=== PATIENT | female | born 1930 | race Caucasian/White ===

== ENCOUNTER 2016-05-18 14:44 | Emergency (ER) | payer MEDICARE ==
[2016-05-18 15:07] VITALS: BP 154/65
--- NOTE | 2016-05-18 15:26 | ED Physician Documentation ---
Female Urogenital Problems - HISTORIAN Historian: patient - HPI Stated Complaint: UTI symptoms Chief Complaint: Female Urogenital Problems Onset: other (3 week) Severity: mild Further Comments: yes (3 week history some urinary burning, ungency, nocturia. No hematuria, no increase back pain. Has had UTI in the past) - Vaginal Bleeding Sexual History: inactive - Associated Symptoms Urinary Symptoms: frequent urination, discomfort w/ urination, burning w/ urination. denies: blood in urine Discharge: denies: vaginal discharge - ROS CONST: none - PAST HX Past History: none Other History: none Allergies/Adverse Reactions: Allergies Allergy/AdvReac Type Severity Reaction Status Date / Time No Known Allergies Allergy Verified 05/18/16 15:06 Home Medications: Ambulatory Orders Medication Instructions Recorded Ciprofloxacin HCl [Cipro] 250 mg PO BID #14 tablet 05/18/16 Ferrous Sulfate [Feosol] 325 mg PO BID 05/18/16 - SOCIAL HX Smoking History: non-smoker Alcohol Use: none Drug Use: none - FAMILY HX Family History: none - VITAL SIGNS Vital Signs: Vital Signs Temp Pulse Resp BP Pulse Ox 97.9 F 96 H 18 154/65 94 05/18/16 14:50 05/18/16 14:50 05/18/16 14:50 05/18/16 14:50 05/18/16 14:50 - REVIEWED ASSESSMENTS Nursing Assessment Reviewed: Yes Vitals Reviewed: Yes Female Urogenital Problems - EXAM General Appearance: no acute distress, alert Neck: nml inspection Respiratory: no resp. distress, breath sounds nml. No: wheezes, rales, rhonchi CVS: reg rate & rhythm, heart sounds normal, equal pulses, no murmur, no gallop Abdomen: no organomegaly, no distention, nml bowel sounds, tenderness ( suprapubic area) Back: CVA tenderness (mild bilateral) Skin: color nml, no rash, warm,dry Extremities: non-tender Neuro: oriented X3, CN's nml as tested, motor nml, sensation nml, mood/affect nml Discharge Clincal Impression: UTI (urinary tract infection) Prescriptions: Ciprofloxacin HCl [Cipro] 250 mg PO BID #14 tablet Referrals: Jocelyne Thomas MD [Primary Care Provider] - 2 Days Additional Instructions: Drink a lot of fluids, Take Cipro until gone. If you develop fever, chill, abdominal pain or other problems to follow-up with your primary care provider or return to the ED. Home Medications: Ambulatory Orders Ciprofloxacin HCl [Cipro] 250 mg PO BID #14 tablet 05/18/16 Ferrous Sulfate [Feosol] 325 mg PO BID 05/18/16 Condition: Stable Disposition: HOME, SELF-CARE Decision to Admit: NO Date of Decison to Admit: 05/18/16 Decision Time: 15:48
[2016-05-18 16:16] LABS: APPEARANCE,URINE Cloudy (CLEAR); COLOR,URINE Yellow (YELLOW); OCCULT BLOOD,URINE 2+ (NEGATIVE); PH URINE 5.5 (5.0 - 8.0); UROBILINOGEN URINE 0.2 Eu (0.2-1.0)
== END 2016-05-18 16:16 | disposition home or self-care (01) ==
LOC: ED 14:44
DX: N39.0 Urinary tract infection, site not specified (principal)
CPT/HCPCS: 81002; 87088; 87186; 99283

== ENCOUNTER 2016-06-22 15:59 | Emergency (ER) | payer MEDICARE ==
--- NOTE | 2016-06-22 16:37 | ED Physician Documentation ---
Fall - HISTORIAN Historian: patient - HPI Stated Complaint: fall Chief Complaint: Lower Extremity Problem Onset: just prior to arrival Where: other ([employer]) Context: slipped, lost balance r: moderate Associated Symptoms:: no loss of consciousness Location of Pain/Injury: head (mild), neck (lowe mild) Injury to Right Extremity: none Injury to Left Extremity: none Further Comments: yes (Patient slipped and fell backwards landing on her left side. Compalins of left hip and knee pain. No LOC No numbness or weakness to the leg) - ROS CONST: no problems - PAST HX Past History: cardiac disease, COPD, other (asthma, HTN) Allergies/Adverse Reactions: Allergies Allergy/AdvReac Type Severity Reaction Status Date / Time No Known Allergies Allergy Verified 06/22/16 16:13 Home Medications: Ambulatory Orders Medication Instructions Recorded Hydroxyzine Pamoate [Hydroxyzine 25 mg PO DAILY 06/22/16 Pamoate] - SOCIAL HX Smoking History: non-smoker Alcohol Use: none Drug Use: none - FAMILY HX Family History: no significant history - VITAL SIGNS Vital Signs: Vital Signs Temp Pulse Resp BP Pulse Ox 98.1 F 100 H 20 217/94 95 06/22/16 16:07 06/22/16 16:07 06/22/16 16:07 06/22/16 16:07 06/22/16 16:07 - REVIEWED ASSESSMENTS Nursing Assessment Reviewed: Yes Vitals Reviewed: Yes ED Results Lab/Radiology - Radiology Radiology Impressions: CT scan Head, age related changes CT scan c spine, degenerative changes, no acute fracture Hip: intertrochanteric fracture Kne: arthritic changes Fall Physical Exam - Physical Exam General Appearance: no acute distress, alert (0X3) Head: non-tender (mild abrasion tot he post occiput) Neck: painless ROM, trachea midline. No: non-tender (tendeer to plapation over the laterale right c5,6 area, no bony abnl noted) Resp/CVS: chest non-tender, no ecchymosis, breath sounds nml, no resp. distress , heart sounds nml. No: rib tenderness, rib palpable fracture, crepitus, subcutaneous emphysema Abdomen: soft, no organomegaly Neuro: oriented x3, CN's nml as tested, sensation nml, motor nml, mood/affect nml, sfdc developer nml, reflexes nml Skin: color nml, no rash Extremities: pelvis stable. No: hips non-tender (left hip tender to palpation and movement over the tracanteric region) Joint: painful (over the hip and lateral knee) - Jeramy Coma Score Eyes Open: Spontaneous Speech: Oriented Motor: Obeys Commands Discharge Clincal Impression: Intertrochanteric fracture of left femur Referrals: Jocelyne Thomas MD [Primary Care Provider] - 2 Days Home Medications: Ambulatory Orders Hydroxyzine Pamoate [Hydroxyzine Pamoate] 25 mg PO DAILY 06/22/16 Disposition: 02 XFER S[facility]-TRM HOSP Decision to Admit: NO Date of Decison to Admit: 06/22/16 Decision Time: 18:30 Lower Extremity Problem - HPI Stated Complaint: fall - PAST HX Allergies/Adverse Reactions: Allergies Allergy/AdvReac Type Severity Reaction Status Date / Time No Known Allergies Allergy Verified 06/22/16 16:13 Home Medications: Ambulatory Orders Medication Instructions Recorded Hydroxyzine Pamoate [Hydroxyzine 25 mg PO DAILY 06/22/16 Pamoate] - VITAL SIGNS Vital Signs: Vital Signs Temp Pulse Resp BP Pulse Ox 98.1 F 100 H 20 217/94 95 06/22/16 16:07 06/22/16 16:07 06/22/16 16:07 06/22/16 16:07 06/22/16 16:07
[2016-06-22] MEDS ORDERED: KETOROLAC TROMETHAMINE 30 MG/1ML VIAL IVP ONE (17:14)
--- NOTE | 2016-06-22 18:21 | Diagnostic Imaging Report ---
[address] [facility] [address] Report Submission Date: Jun 22, 2016 6:09:00 PM AIRPLANE RIGGER Patient Study Name: RAMIREZ HINSON Date: Jun 22, 2016 5:01:14 PM AIRPLANE RIGGER Modality Type: CR Gender: F Description: PELVIS : 28 Institution: Physician: VICKY MOSES 2 views of the hip History: Fall Delay downloading studies Findings: No comparison studies There is a minimally displaced intertrochanteric fracture of the left femur Vascular calcification is present Impression: Minimally displaced intertrochanteric fracture of the left femur Findings were discussed by Dr. Garrett with VIVI To on 06/22/16 at approx. 5:52 pm AIRPLANE RIGGER Electronically signed on Jun 22, 2016 6:09:00 PM AIRPLANE RIGGER by: Anitha NEWTON
--- NOTE | 2016-06-22 18:22 | Diagnostic Imaging Report ---
[facility] [address] [address] Report Submission Date: Jun 22, 2016 6:14:02 PM TAXICAB DRIVER Patient Study Name: RAMIREZ HINSON Date: Jun 22, 2016 5:07:38 PM TAXICAB DRIVER Modality Type: CR Gender: F Description: LOWER EXTREMITY : 29 Institution: [facility] Physician: VICKY MOSES 3 views of the left knee History: Fall Findings: No comparison studies Overlying bandage obscures osseous and soft tissue detail Degenerative changes are noted at the left knee No evidence of acute fracture of the left knee Bones are demineralized Chondrocalcinosis lateral knee joint space Impression: 1. Overlying bandage dressing obscures osseous and soft tissue detail, within this limitation, no obvious evidence of acute fracture or dislocation of the left knee 2. Chondrocalcinosis lateral joint space 3. Tricompartmental degenerative changes. A small suprapatellar effusion may be present Electronically signed on Jun 22, 2016 6:14:02 PM TAXICAB DRIVER by: Anitha NEWTON
--- NOTE | 2016-06-22 18:23 | Diagnostic Imaging Report ---
[facility] [address] [facility] [address] [place] [address]. [address] Report Submission Date: Jun 22, 2016 5:04:13 PM TRACK REPAIR SUPERVISOR Patient Study Name: RAMIREZ HINSON Date: Jun 22, 2016 4:47:44 PM TRACK REPAIR SUPERVISOR Modality Type: CT\SR Gender: F Description: CT BRAIN W/O CONTRAST : 29 Institution: [facility] Physician: VICKY MOSES CT head History: FALL WITH HEAD TRAUMA Multiple axial images of the brain are submitted with reconstructions Findings: No comparison studies There is no acute intracranial hemorrhage. No midline shift Intracranial vascular calcification is present Cerebral atrophy is seen Periventricular white matter hypodensities of small vessel ischemic disease are present No acute skull fracture. Mastoid air cells and paranasal air sinuses are well aerated Impression: 1. No acute intracranial hemorrhage. No midline shift 2. Cerebral atrophy and prominent ventricles 3. Periventricular small vessel ischemic disease Electronically signed on Jun 22, 2016 5:04:13 PM TRACK REPAIR SUPERVISOR by: Anitha NEWTON
--- NOTE | 2016-06-22 18:24 | Diagnostic Imaging Report ---
[facility] [place] [facility] [address] [facility] [address] [place], [place]. [address] Report Submission Date: Jun 22, 2016 6:22:09 PM RESEARCH & INSIGHTS EXECUTIVE Patient Study Name: RAMIREZ HINSON Date: Jun 22, 2016 4:49:43 PM RESEARCH & INSIGHTS EXECUTIVE Modality Type: CT\SR Gender: F Description: CT C-SPINE W/O CONTRAS : 29 Institution: [facility] [place] [facility] Physician: VICKY MOSES CT cervical spine History: Fall Multiple axial images of the cervical spine are submitted with reconstructions Delay downloading images Findings: No comparison studies No evidence of acute fracture of the cervical spine There is no prevertebral or hematoma Multilevel degenerative changes are noted throughout the cervical spine, these are worst at C5-6 with grade I retrolisthesis of C5 on C6, mild spinal canal narrowing at this level Generalized disc bulges are noted at C4-5, C6/C7 There is a spiculated nodular mass at the right lung apex which measures 1.2 x 1.3 cm with adjacent scarring and architectural distortion Impression: 1. No evidence of acute fracture of the cervical spine 2. Multilevel degenerative changes are worst at C5-6 with mild to moderate spinal canal narrowing at this level 3. Grade I retrolisthesis of C5 on C6. 4. No prevertebral hematoma. 5. Spiculated nodular mass at the right lung apex with adjacent scarring needs further evaluation, comparison with prior studies and/or CT chest is suggested Findings discussed by Dr. Garrett with VIVI To on 06/22/16 at approx. 5: 52 pm RESEARCH & INSIGHTS EXECUTIVE Electronically signed on Jun 22, 2016 6:22:09 PM RESEARCH & INSIGHTS EXECUTIVE by: Anitha NEWTON
[2016-06-22] MEDS ORDERED: fentaNYL CITRATE/PF 100 MCG/ 2ML AMP IVP ONE (18:49)
[2016-06-22] MEDS ORDERED: fentaNYL CITRATE/PF 100 MCG/ 2ML AMP ONE (18:49)
[2016-06-22 22:10] VITALS: BP 204/95
== END 2016-06-22 18:40 | disposition short-term general hospital (02) ==
LOC: ED 15:59
DX: S72.142A Displaced intertrochanteric fracture of left femur, initial encounter for closed fracture (principal); W01.0XXA Fall on same level from slipping, tripping and stumbling without subsequent striking against object, initial encounter; Y93.9 Activity, unspecified; Y99.9 Unspecified external cause status
CPT/HCPCS: 70450; 72125; 73502; 73562; J1885; J3010; 96374; 96375; 99283; 99284

== ENCOUNTER 2016-06-25 16:40 | Inpatient (IN) | payer MEDICARE ==
[2016-06-25 17:11] VITALS: BMI 20.2
[2016-06-25] MEDS ORDERED: POLYETHYLENE GLYCOL 3350 17 GM POWD.PACK PO PRN (17:19)
[2016-06-25] MEDS ORDERED: IPRATROPIUM/ALBUTEROL SULFATE 3 ML AMPUL.NEB NEB PRN (17:19)
[2016-06-25] MEDS ORDERED: ACETAMINOPHEN 325 MG TABLET PO PRN (17:19)
--- NOTE | 2016-06-25 18:23 | History and Physical Report ---
History of Present Illnes - History of Present Illness Reason for Visit: left hip fracture History of Present Illness: Thisis an 86 year old female admitted with a left hip fracture after having a fall at the grocery store on . She initially presented to the [facility] ER, and was noted to have a left intertrochanteric hip fracture. She was taken to the OR by Dr. Pradeep Buck who did a left hip pinning on June 23. Her recovery has been fairly unremarkable, and she presents to our facility for OT/PT so that she can return to her home on discharge. 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 denies: Pneumococcal Vaccine Influenza Vaccine: Current for this Influenza Season Pneumonia Vaccine: Yes (03/09/16) Resuscitation Status: Resusciation Status Resuscitation Status DNR after conversation with patient and her daughter Cassie [phone] 18:15 - Unable to Obtain History Unable to Obtain: No Review of Systems - Review of Systems Constitutional: negative: Fever Eyes: pain (left hip) ENT: negative: Ear Pain, Mouth Swelling Respiratory: Shortness of Breath (chronic). negative: Cough Cardiovascular: negative: Chest Pain Gastrointestinal: negative: Nausea, Deferred Genitourinary: negative: Dysuria Musculoskeletal: negative: Neck Pain Skin: negative: Rash Neurological: negative: Weakness, Change in Speech, Confusion - Medications/Allergies Allergies/Adverse Reactions: Allergies Allergy/AdvReac Type Severity Reaction Status Date / Time No Known Allergies Allergy Verified 06/22/16 16:13 Current Inpatient Medications: Current Inpatient Medications Acetaminophen (Tylenol) 650 mg PO Q4H PRN PRN Reason: PAIN OR TEMPERATURE > 101 Albuterol Sulfate (Proair Respiclick) 1 puff INH BID [place] Albuterol/Ipratropium (Duoneb) 3 ml NEB Q6 PRN PRN Reason: WHEEZE/SHORTNESS OF AIR Aspirin (Aspirin) 81 mg PO DAILY [facility] Cholecalciferol (Vitamin D-3) 2,000 unit PO DAILY [facility] Docusate Sodium (Colace) 100 mg PO BID [facility] Enoxaparin Sodium (Lovenox) 40 mg SQ QD [facility] Stop: 07/09/16 08:59 Ferrous Sulfate (Feosol) 325 mg PO [id number] [facility] Metoprolol Succinate (Toprol Xl) 25 mg PO DAILY [facility] Polyethylene Glycol (Miralax) 17 gm PO 1100 PRN PRN Reason: Constipation Psyllium Hydrophilic Mucilloid (Metamucil) 1 each PO 1100 [facility] Tiotropium [place] (Spiriva) 1 inh IH DAILY [facility] Exam - Exam Vital Signs: Vital Signs (72 hours) 06/22/16 06/25/16 22:08 16:59 Temperature 98.5 F Pulse Rate [ 81 Pulse ox] Respiratory 18 Rate Blood Pressure 204/95 Blood Pressure 154/65 [Left Arm] Blood Pressure 204/95 108/53 [Right Arm] O2 Sat by Pulse 92 Oximetry General: Alert, Oriented to Person, Oriented to Place, Oriented to Time, Cooperative, No acute distress HEENT: Atraumatic, PERRLA, EOMI, Mouth Mucous membr. moist/[place] Neck: Other (no bruits). No: Stridor, Rigidity Lungs: Prolonged Expiration, Decreased Air Movement Cardiovascular: Regular rate Murmur: Systolic Murmur (II/ (Likely mild )) Heart Murmur Grade: II Abdomen: Normal bowel sounds, Soft, No tenderness, No hepatospenomegaly, No masses Genitourinary: No: Right Inguinal Hernia, Left Inguinal Hernia Male Genitourinary: No: Other Female Genitourinary: No: Prolapse, Masses Integumentary: Normal, [place], Warm, Dry Extremities: No clubbing, No cyanosis, Other (Both incisions are approximated with trang and look very good.) Neurological: Normal speech, Strength Equal Bilat Psych/Mental Status: Mental status NL Assessment/Plan - Assessment/Plan (1) COPD (chronic obstructive pulmonary disease) Status: Acute Current Visit: Yes Qualifiers: COPD type: emphysema Emphysema type: panlobular Qualified Code(s): J43.1 - Panlobular emphysema (2) CAD (coronary artery disease) Status: Acute Current Visit: Yes Qualifiers: Coronary Disease-Associated Artery/Lesion type: [place] artery [place] vs. transplanted heart: [place] heart Associated angina: without angina Qualified Code(s): I25.10 - Atherosclerotic heart disease of [place] coronary artery without angina pectoris (3) Hypertension Status: Acute Current Visit: Yes Qualifiers: Hypertension type: essential hypertension Qualified Code(s): I10 - Essential (primary) hypertension Comment: Well controlled (4) Intertrochanteric fracture of left femur Status: Acute Current Visit: No Assessment: S/P Hip Pinning Plan: OT/PT consults (5) Osteoarthritis Status: Acute Current Visit: No Qualifiers: Osteoarthritis location: hip Osteoarthritis type: unspecified Laterality : right Qualified Code(s): M16.11 - Unilateral primary osteoarthritis, right hip Assessment: Chronic VTE Assessment - RISK FACTOR SCORE VTE RISK FACTOR SCORES: AGE OVER 60 YEARS, ANTICIPATED BED CONFINEMENT OR IMMOBILIZATION > 24 HOURS - RISK VTE MODERATE RISK: SCORE OF 2 (RISK PROXIMAL DVT 2-4%) PROPHYAXIS NEEDED (On lovenox 40 mg scqd.)
[2016-06-25] MEDS: FERROUS SULFATE 325 MG TABLET PO SCH (20:28)
[2016-06-25] MEDS: DOCUSATE SODIUM 100 MG CAPSULE PO SCH (20:28)
[2016-06-25] MEDS: HYDROcodone /APAP 5/325 1 EACH TABLET PO PRN (20:31)
[2016-06-25] MEDS: ALBUTEROL SULFATE 200 PUFF INHALER INH SCH (21:00)
[2016-06-26] MEDS: HYDROcodone /APAP 5/325 1 EACH TABLET PO PRN ×4 (02:55→20:29)
[2016-06-26] MEDS ORDERED: ENOXAPARIN SODIUM 40 MG/0.4 ML DISP.SYRIN SQ ONE (05:37)
[2016-06-26 06:33] LABS: BASOPHILS % 0.2 (0.0-1.5); EOSINOPHILS % 1.8 % (0.0-6.8); LYMPHOCYTES # 0.9 # k/uL (0.6-4.0); MEAN CORPUSCULAR HEMOGLOBIN 34.8 pg (28.0-34.0); MONOCYTES # 0.6 # k/uL (0.0-0.9); MONOCYTES % 7.9 % (0.0-11.0); NEUTROPHILS # 5.8 # k/uL (1.4-7.7)
[2016-06-26 06:54] LABS: eGFR (African) > 60; eGFR (Non-African) > 60
[2016-06-26] MEDS: DOCUSATE SODIUM 100 MG CAPSULE PO SCH ×2 (09:21→20:13)
[2016-06-26] MEDS: ENOXAPARIN SODIUM 40 MG/0.4 ML DISP.SYRIN SQ SCH (09:21)
[2016-06-26] MEDS: METOPROLOL SUCCINATE 50 MG TAB.ER.24H PO SCH (09:21)
[2016-06-26] MEDS: CHOLECALCIFEROL 1,000 UNIT TABLET PO SCH (09:21)
[2016-06-26] MEDS: TIOTROPIUM BROMIDE INHALER IH SCH (09:23)
[2016-06-26] MEDS: ALBUTEROL SULFATE 200 PUFF INHALER INH SCH ×2 (09:25→20:14)
[2016-06-26] MEDS: PSYLLIUM SEED 1 EACH PACKET PO SCH (11:47)
[2016-06-26] MEDS: FERROUS SULFATE 325 MG TABLET PO SCH ×2 (11:48→18:33)
[2016-06-26] MEDS ORDERED: PHARMACY KEY 1 EACH EACH MC ONE (19:49)
[2016-06-26] MEDS: rOPINIRole HCL 1 MG TABLET PO SCH (20:14)
[2016-06-27] MEDS ORDERED: ENOXAPARIN SODIUM 40 MG/0.4 ML DISP.SYRIN SQ ONE (05:50)
[2016-06-27] MEDS ORDERED: ONDANSETRON HCL 4 MG TAB.RAPDIS PO PRN (07:47)
[2016-06-27] MEDS: METOPROLOL SUCCINATE 50 MG TAB.ER.24H PO SCH (08:24)
[2016-06-27] MEDS: ENOXAPARIN SODIUM 40 MG/0.4 ML DISP.SYRIN SQ SCH (08:27)
[2016-06-27] MEDS: DOCUSATE SODIUM 100 MG CAPSULE PO SCH ×2 (08:27→20:03)
[2016-06-27] MEDS: ALBUTEROL SULFATE 200 PUFF INHALER INH SCH ×2 (08:28→20:04)
[2016-06-27] MEDS: TIOTROPIUM BROMIDE INHALER IH SCH (08:29)
[2016-06-27] MEDS: CHOLECALCIFEROL 1,000 UNIT TABLET PO SCH (08:30)
[2016-06-27] MEDS: HYDROcodone /APAP 5/325 1 EACH TABLET PO PRN ×3 (11:01→20:34)
[2016-06-27] MEDS: FERROUS SULFATE 325 MG TABLET PO SCH ×2 (11:51→18:39)
[2016-06-27] MEDS: PSYLLIUM SEED 1 EACH PACKET PO SCH (11:52)
[2016-06-27] MEDS: rOPINIRole HCL 1 MG TABLET PO SCH ×2 (11:55→20:03)
[2016-06-28] MEDS ORDERED: ENOXAPARIN SODIUM 40 MG/0.4 ML DISP.SYRIN SQ ONE (05:11)
[2016-06-28] MEDS: METOPROLOL SUCCINATE 50 MG TAB.ER.24H PO SCH (09:20)
[2016-06-28] MEDS: CHOLECALCIFEROL 1,000 UNIT TABLET PO SCH (09:20)
[2016-06-28] MEDS: TIOTROPIUM BROMIDE INHALER IH SCH (09:20)
[2016-06-28] MEDS: DOCUSATE SODIUM 100 MG CAPSULE PO SCH ×2 (09:20→20:17)
[2016-06-28] MEDS: ENOXAPARIN SODIUM 40 MG/0.4 ML DISP.SYRIN SQ SCH (09:21)
[2016-06-28] MEDS: ALBUTEROL SULFATE 200 PUFF INHALER INH SCH ×2 (09:21→20:18)
[2016-06-28] MEDS: HYDROcodone /APAP 5/325 1 EACH TABLET PO PRN ×2 (09:25→13:51)
[2016-06-28] MEDS: FERROUS SULFATE 325 MG TABLET PO SCH ×2 (11:29→19:11)
[2016-06-28] MEDS: PSYLLIUM SEED 1 EACH PACKET PO SCH (11:31)
[2016-06-28] MEDS: rOPINIRole HCL 1 MG TABLET PO SCH ×2 (11:32→20:17)
[2016-06-28] MEDS ORDERED: HYDROXYZINE HCL 25 MG TABLET PO PRN (14:25)
[2016-06-28] MEDS: HYDROcodone /APAP 10/325 1 EACH TABLET PO PRN ×2 (17:48→22:08)
[2016-06-29] MEDS: HYDROcodone /APAP 10/325 1 EACH TABLET PO PRN (05:22)
[2016-06-29 07:14] LABS: BASOPHILS % 0.3 (0.0-1.5); EOSINOPHILS % 2.2 % (0.0-6.8); LYMPHOCYTES # 0.9 # k/uL (0.6-4.0); MEAN CORPUSCULAR HEMOGLOBIN 34.1 pg (28.0-34.0); MONOCYTES # 0.4 # k/uL (0.0-0.9); MONOCYTES % 8.7 % (0.0-11.0); NEUTROPHILS # 3.4 # k/uL (1.4-7.7)
[2016-06-29] MEDS: METOPROLOL SUCCINATE 50 MG TAB.ER.24H PO SCH (08:08)
[2016-06-29] MEDS: TIOTROPIUM BROMIDE INHALER IH SCH (08:09)
[2016-06-29] MEDS: CHOLECALCIFEROL 1,000 UNIT TABLET PO SCH (08:09)
[2016-06-29] MEDS: DOCUSATE SODIUM 100 MG CAPSULE PO SCH ×2 (08:09→19:55)
[2016-06-29] MEDS: ALBUTEROL SULFATE 200 PUFF INHALER INH SCH ×2 (08:10→19:54)
[2016-06-29] MEDS: ENOXAPARIN SODIUM 40 MG/0.4 ML DISP.SYRIN SQ SCH (08:14)
--- NOTE | 2016-06-29 08:14 | Inpatient Progress Note ---
Subjective - Required Recertification Statement I anticipate X number of days because-include discharge plan: 14 - Review of Systems Subjective: Patient reports pain in her L hip. Better today than yesterday. Objective - Exam Vitals and I&O: Vital Signs Temp 98.3 F 06/28/16 21:00 Pulse 72 06/28/16 21:00 Resp 20 06/28/16 21:00 BP 159/59 06/28/16 21:00 Pulse Ox 93 06/28/16 21:00 Intake & Output 06/28/16 06/28/16 06/29/16 11:59 23:59 11:59 Intake Total 240 540 Balance 240 540 Weight 53.07 kg Intake: Oral 240 540 Other: Voiding Method Bedside Commode Bedside Commode # Voids 2 1 General: Alert, Oriented to Person, Oriented to Place, Oriented to Time, Cooperative, No acute distress Lungs: Clear to auscultation, Normal air movement, Speaks full Sentences - Results Results: Laboratory Results WBC 5.10 K/ul (4.00-12.00) 06/29/16 06:15 RBC 2.57 M/ul (3.90-5.20) L 06/29/16 06:15 Hgb 8.8 g/dL (12.0-16.0) L 06/29/16 06:15 Hct 26.3 % (34.5-46.5) L 06/29/16 06:15 MCV 102.4 fl (80.0-100.0) H 06/29/16 06:15 MCH 34.1 pg (28.0-34.0) H 06/29/16 06:15 MCHC 33.3 g/dL (30.0-36.0) 06/29/16 06:15 RDW 13.0 % (11.3-14.3) 06/29/16 06:15 Plt Count 341 K/mm3 (130-400) 06/29/16 06:15 Neut % (Auto) 67.1 % (39.0-79.0) 06/29/16 06:15 Lymph % (Auto) 17.2 % (16.0-50.0) 06/29/16 06:15 [place] % (Auto) 8.7 % (0.0-11.0) 06/29/16 06:15 Eos % (Auto) 2.2 % (0.0-6.8) 06/29/16 06:15 Baso % (Auto) 0.3 (0.0-1.5) 06/29/16 06:15 Neut # 3.4 # k/uL (1.4-7.7) 06/29/16 06:15 Lymph # 0.9 # k/uL (0.6-4.0) 06/29/16 06:15 Bennett # 0.4 # k/uL (0.0-0.9) 06/29/16 06:15 Eos # 0.1 # k/uL (0.0-0.6) 06/29/16 06:15 Baso # 0.0 # k/uL (0.0-0.5) 06/29/16 06:15 Reactive Lymphs % 4.5 % (0.0-5.0) 06/29/16 06:15 Reactive Lymphs # 0.2 # k/uL (0.0-0.8) 06/29/16 06:15 Sodium 136 mmol/L (136-145) 06/26/16 06:15 Potassium 4.2 mmol/L (3.5-5.0) 06/26/16 06:15 Chloride 97 mmol/L (98-110) L 06/26/16 06:15 Carbon Dioxide 31 mmol/L (20-32) 06/26/16 06:15 BUN 11 mg/dL (10-26) 06/26/16 06:15 Creatinine 0.4 mg/dL (0.4-1.5) 06/26/16 06:15 Estimated Creat Clear 95 06/26/16 06:15 Est GFR ( Amer) > 60 (60-) 06/26/16 06:15 Est GFR (Non-Af Amer) > 60 (60-) 06/26/16 06:15 Glucose 112 mg/dL (70-99) H 06/26/16 06:15 Calcium 9.3 mg/dL (8.5-10.5) 06/26/16 06:15 Total Bilirubin 0.5 mg/dL (0.2-1.2) 06/26/16 06:15 AST 31 U/L (0-41) 06/26/16 06:15 ALT 20 U/L (0-45) 06/26/16 06:15 Alkaline Phosphatase 52 U/L (46-116) 06/26/16 06:15 Total Protein 6.1 g/dL (6.0-8.5) 06/26/16 06:15 Albumin 3.6 g/dL (3.0-5.5) 06/26/16 06:15 Assessment/Plan - Assessment/Plan (1) Anemia Status: Acute Current Visit: Yes Qualifiers: Anemia type: iron deficiency Iron deficiency anemia type: unspecified iron deficiency Qualified Code(s): D50.9 - Iron deficiency anemia, unspecified Plan: Received blood transfusion after hip surgery. Hgb at [facility] was 8.6. Stable. Hold off iron replacement until we see how her bowels do on narcotics. REcheck next week. (2) Acute pain Status: Acute Current Visit: No (3) Intertrochanteric fracture of left femur Status: Acute Current Visit: Yes Qualifiers: Encounter type: subsequent encounter Fracture type: closed Fracture healing: with routine healing Qualified Code(s): S72.142D - Displaced intertrochanteric fracture of left femur, subsequent encounter for closed fracture with routine healing Plan: Patient needing pain meds every 4 hours. Will try oxycontin 20 mg bid - had been taking norco 10/325 tid at home before fracture and still in pain. Watch bowels closely. Watch for mental status change.
[2016-06-29] MEDS: PSYLLIUM SEED 1 EACH PACKET PO SCH (11:00)
[2016-06-29] MEDS: FERROUS SULFATE 325 MG TABLET PO SCH ×2 (11:00→18:40)
[2016-06-29] MEDS: rOPINIRole HCL 1 MG TABLET PO SCH ×2 (12:59→19:55)
[2016-06-29] MEDS: HYDROcodone /APAP 5/325 1 EACH TABLET PO PRN (13:48)
[2016-06-30] MEDS: CHOLECALCIFEROL 1,000 UNIT TABLET PO SCH (08:29)
[2016-06-30] MEDS: DOCUSATE SODIUM 100 MG CAPSULE PO SCH ×2 (08:29→20:32)
[2016-06-30] MEDS: METOPROLOL SUCCINATE 50 MG TAB.ER.24H PO SCH (08:30)
[2016-06-30] MEDS: ENOXAPARIN SODIUM 40 MG/0.4 ML DISP.SYRIN SQ SCH (08:32)
[2016-06-30] MEDS: TIOTROPIUM BROMIDE INHALER IH SCH (08:33)
[2016-06-30] MEDS: ALBUTEROL SULFATE 200 PUFF INHALER INH SCH ×2 (08:33→20:33)
[2016-06-30] MEDS: FERROUS SULFATE 325 MG TABLET PO SCH ×2 (11:40→18:34)
[2016-06-30] MEDS: rOPINIRole HCL 1 MG TABLET PO SCH ×2 (11:41→20:33)
[2016-06-30] MEDS: PSYLLIUM SEED 1 EACH PACKET PO SCH (11:41)
[2016-06-30] MEDS: HYDROcodone /APAP 5/325 1 EACH TABLET PO PRN (12:25)
[2016-07-01] MEDS: DOCUSATE SODIUM 100 MG CAPSULE PO SCH ×2 (09:12→21:08)
[2016-07-01] MEDS: METOPROLOL SUCCINATE 50 MG TAB.ER.24H PO SCH (09:13)
[2016-07-01] MEDS: TIOTROPIUM BROMIDE INHALER IH SCH (09:14)
[2016-07-01] MEDS: ENOXAPARIN SODIUM 40 MG/0.4 ML DISP.SYRIN SQ SCH (09:14)
[2016-07-01] MEDS: ALBUTEROL SULFATE 200 PUFF INHALER INH SCH ×2 (09:14→21:08)
[2016-07-01] MEDS: CHOLECALCIFEROL 1,000 UNIT TABLET PO SCH (09:15)
[2016-07-01] MEDS: HYDROcodone /APAP 5/325 1 EACH TABLET PO PRN (10:34)
[2016-07-01] MEDS: PSYLLIUM SEED 1 EACH PACKET PO SCH (11:49)
[2016-07-01] MEDS: FERROUS SULFATE 325 MG TABLET PO SCH ×2 (11:49→18:08)
[2016-07-01] MEDS: rOPINIRole HCL 1 MG TABLET PO SCH ×2 (12:47→21:08)
[2016-07-02] MEDS: CHOLECALCIFEROL 1,000 UNIT TABLET PO SCH (08:53)
[2016-07-02] MEDS: ALBUTEROL SULFATE 200 PUFF INHALER INH SCH ×2 (08:54→20:02)
[2016-07-02] MEDS: DOCUSATE SODIUM 100 MG CAPSULE PO SCH ×2 (08:54→20:02)
[2016-07-02] MEDS: METOPROLOL SUCCINATE 50 MG TAB.ER.24H PO SCH (08:54)
[2016-07-02] MEDS: ENOXAPARIN SODIUM 40 MG/0.4 ML DISP.SYRIN SQ SCH (08:55)
[2016-07-02] MEDS: HYDROcodone /APAP 5/325 1 EACH TABLET PO PRN ×2 (09:00→18:12)
[2016-07-02] MEDS: TIOTROPIUM BROMIDE INHALER IH SCH (09:01)
[2016-07-02] MEDS: PSYLLIUM SEED 1 EACH PACKET PO SCH (11:43)
[2016-07-02] MEDS: FERROUS SULFATE 325 MG TABLET PO SCH ×2 (11:43→18:12)
[2016-07-02] MEDS: rOPINIRole HCL 1 MG TABLET PO SCH ×2 (11:43→20:01)
[2016-07-03] MEDS: METOPROLOL SUCCINATE 50 MG TAB.ER.24H PO SCH (07:54)
[2016-07-03] MEDS: CHOLECALCIFEROL 1,000 UNIT TABLET PO SCH (07:54)
[2016-07-03] MEDS: TIOTROPIUM BROMIDE INHALER IH SCH (07:55)
[2016-07-03] MEDS: HYDROcodone /APAP 5/325 1 EACH TABLET PO PRN (07:55)
[2016-07-03] MEDS: DOCUSATE SODIUM 100 MG CAPSULE PO SCH ×2 (07:55→20:07)
[2016-07-03] MEDS: ENOXAPARIN SODIUM 40 MG/0.4 ML DISP.SYRIN SQ SCH (07:56)
[2016-07-03] MEDS: ALBUTEROL SULFATE 200 PUFF INHALER INH SCH ×2 (07:56→20:07)
[2016-07-03] MEDS: PSYLLIUM SEED 1 EACH PACKET PO SCH (10:55)
[2016-07-03] MEDS: FERROUS SULFATE 325 MG TABLET PO SCH ×2 (10:55→18:16)
[2016-07-03] MEDS: rOPINIRole HCL 1 MG TABLET PO SCH ×2 (13:12→20:08)
[2016-07-04] MEDS: TIOTROPIUM BROMIDE INHALER IH SCH (09:22)
[2016-07-04] MEDS: ENOXAPARIN SODIUM 40 MG/0.4 ML DISP.SYRIN SQ SCH (09:22)
[2016-07-04] MEDS: CHOLECALCIFEROL 1,000 UNIT TABLET PO SCH (09:22)
[2016-07-04] MEDS: DOCUSATE SODIUM 100 MG CAPSULE PO SCH ×2 (09:22→20:06)
[2016-07-04] MEDS: METOPROLOL SUCCINATE 50 MG TAB.ER.24H PO SCH (09:23)
[2016-07-04] MEDS: ALBUTEROL SULFATE 200 PUFF INHALER INH SCH ×2 (09:23→20:06)
[2016-07-04] MEDS: FERROUS SULFATE 325 MG TABLET PO SCH ×2 (11:19→18:37)
[2016-07-04] MEDS: PSYLLIUM SEED 1 EACH PACKET PO SCH (11:19)
[2016-07-04] MEDS: rOPINIRole HCL 1 MG TABLET PO SCH ×2 (12:20→20:06)
[2016-07-05] MEDS: ALBUTEROL SULFATE 200 PUFF INHALER INH SCH ×2 (08:07→21:04)
[2016-07-05] MEDS: CHOLECALCIFEROL 1,000 UNIT TABLET PO SCH (08:08)
[2016-07-05] MEDS: TIOTROPIUM BROMIDE INHALER IH SCH (08:08)
[2016-07-05] MEDS: DOCUSATE SODIUM 100 MG CAPSULE PO SCH ×2 (08:09→20:59)
[2016-07-05] MEDS: ENOXAPARIN SODIUM 40 MG/0.4 ML DISP.SYRIN SQ SCH (08:09)
[2016-07-05] MEDS: METOPROLOL SUCCINATE 50 MG TAB.ER.24H PO SCH (08:09)
[2016-07-05] MEDS: HYDROcodone /APAP 5/325 1 EACH TABLET PO PRN ×2 (08:09→18:11)
[2016-07-05] MEDS: PSYLLIUM SEED 1 EACH PACKET PO SCH (10:38)
[2016-07-05] MEDS: FERROUS SULFATE 325 MG TABLET PO SCH ×2 (10:38→18:11)
[2016-07-05] MEDS: rOPINIRole HCL 1 MG TABLET PO SCH ×2 (11:49→20:59)
[2016-07-06] MEDS: TIOTROPIUM BROMIDE INHALER IH SCH (07:55)
[2016-07-06] MEDS: DOCUSATE SODIUM 100 MG CAPSULE PO SCH ×2 (07:55→20:24)
[2016-07-06] MEDS: CHOLECALCIFEROL 1,000 UNIT TABLET PO SCH (07:55)
[2016-07-06] MEDS: METOPROLOL SUCCINATE 50 MG TAB.ER.24H PO SCH (07:56)
[2016-07-06] MEDS: ALBUTEROL SULFATE 200 PUFF INHALER INH SCH ×2 (07:57→20:24)
[2016-07-06] MEDS: ENOXAPARIN SODIUM 40 MG/0.4 ML DISP.SYRIN SQ SCH (07:57)
--- NOTE | 2016-07-06 09:49 | Inpatient Progress Note ---
Subjective - Required Recertification Statement I anticipate X number of days because-include discharge plan: 7 - Review of Systems Subjective: Pain is better. Taking oxycontinin bid and then needing 0-2 percocet per day. Occasional constipation. Objective - Exam Vitals and I&O: Vital Signs Temp 99 F 07/06/16 09:00 Pulse 71 07/06/16 09:00 Resp 16 07/06/16 09:00 BP 190/72 07/06/16 09:00 Pulse Ox 92 07/06/16 09:00 Intake & Output 07/05/16 07/05/16 07/06/16 11:59 23:59 11:59 Intake Total 100 540 120 Balance 100 540 120 Weight 52.613 kg Intake: Oral 100 540 120 Other: Voiding Method Toilet Toilet General: Alert, Oriented to Person, Oriented to Place, Oriented to Time, Cooperative, No acute distress Lungs: Clear to auscultation, Normal air movement, Speaks full Sentences - Results Results: Laboratory Results WBC 5.10 K/ul (4.00-12.00) 06/29/16 06:15 RBC 2.57 M/ul (3.90-5.20) L 06/29/16 06:15 Hgb 8.8 g/dL (12.0-16.0) L 06/29/16 06:15 Hct 26.3 % (34.5-46.5) L 06/29/16 06:15 MCV 102.4 fl (80.0-100.0) H 06/29/16 06:15 MCH 34.1 pg (28.0-34.0) H 06/29/16 06:15 MCHC 33.3 g/dL (30.0-36.0) 06/29/16 06:15 RDW 13.0 % (11.3-14.3) 06/29/16 06:15 Plt Count 341 K/mm3 (130-400) 06/29/16 06:15 Neut % (Auto) 67.1 % (39.0-79.0) 06/29/16 06:15 Lymph % (Auto) 17.2 % (16.0-50.0) 06/29/16 06:15 [place] % (Auto) 8.7 % (0.0-11.0) 06/29/16 06:15 Eos % (Auto) 2.2 % (0.0-6.8) 06/29/16 06:15 Baso % (Auto) 0.3 (0.0-1.5) 06/29/16 06:15 Neut # 3.4 # k/uL (1.4-7.7) 06/29/16 06:15 Lymph # 0.9 # k/uL (0.6-4.0) 06/29/16 06:15 [place] # 0.4 # k/uL (0.0-0.9) 06/29/16 06:15 Eos # 0.1 # k/uL (0.0-0.6) 06/29/16 06:15 Baso # 0.0 # k/uL (0.0-0.5) 06/29/16 06:15 Reactive Lymphs % 4.5 % (0.0-5.0) 06/29/16 06:15 Reactive Lymphs # 0.2 # k/uL (0.0-0.8) 06/29/16 06:15 Sodium 136 mmol/L (136-145) 06/26/16 06:15 Potassium 4.2 mmol/L (3.5-5.0) 06/26/16 06:15 Chloride 97 mmol/L (98-110) L 06/26/16 06:15 Carbon Dioxide 31 mmol/L (20-32) 06/26/16 06:15 BUN 11 mg/dL (10-26) 06/26/16 06:15 Creatinine 0.4 mg/dL (0.4-1.5) 06/26/16 06:15 Estimated Creat Clear 95 06/26/16 06:15 Est GFR ( Amer) > 60 (60-) 06/26/16 06:15 Est GFR (Non-Af Amer) > 60 (60-) 06/26/16 06:15 Glucose 112 mg/dL (70-99) H 06/26/16 06:15 Calcium 9.3 mg/dL (8.5-10.5) 06/26/16 06:15 Total Bilirubin 0.5 mg/dL (0.2-1.2) 06/26/16 06:15 AST 31 U/L (0-41) 06/26/16 06:15 ALT 20 U/L (0-45) 06/26/16 06:15 Alkaline Phosphatase 52 U/L (46-116) 06/26/16 06:15 Total Protein 6.1 g/dL (6.0-8.5) 06/26/16 06:15 Albumin 3.6 g/dL (3.0-5.5) 06/26/16 06:15 Assessment/Plan - Assessment/Plan (1) Anemia Status: Acute Current Visit: Yes Qualifiers: Anemia type: iron deficiency Iron deficiency anemia type: unspecified iron deficiency Qualified Code(s): D50.9 - Iron deficiency anemia, unspecified Plan: Recheck today. (2) Acute pain Status: Acute Current Visit: No Plan: Doing better. Change miralax to daily. (3) Intertrochanteric fracture of left femur Status: Acute Current Visit: Yes Qualifiers: Encounter type: subsequent encounter Fracture type: closed Fracture healing: with routine healing Qualified Code(s): S72.142D - Displaced intertrochanteric fracture of left femur, subsequent encounter for closed fracture with routine healing Plan: Cont. PT/OT at this time.
[2016-07-06 10:40] LABS: BASOPHILS % 0.3 (0.0-1.5); EOSINOPHILS % 1.1 % (0.0-6.8); LYMPHOCYTES # 0.8 # k/uL (0.6-4.0); MEAN CORPUSCULAR HEMOGLOBIN 33.1 pg (28.0-34.0); MONOCYTES # 0.4 # k/uL (0.0-0.9); NEUTROPHILS # 5.3 # k/uL (1.4-7.7)
[2016-07-06] MEDS: PSYLLIUM SEED 1 EACH PACKET PO SCH (11:17)
[2016-07-06] MEDS: FERROUS SULFATE 325 MG TABLET PO SCH ×2 (11:17→17:45)
[2016-07-06] MEDS: rOPINIRole HCL 1 MG TABLET PO SCH ×2 (12:52→20:24)
[2016-07-06] MEDS: POLYETHYLENE GLYCOL 3350 17 GM POWD.PACK PO SCH (12:54)
[2016-07-06] MEDS: HYDROcodone /APAP 5/325 1 EACH TABLET PO PRN (17:47)
[2016-07-07] MEDS: ENOXAPARIN SODIUM 40 MG/0.4 ML DISP.SYRIN SQ SCH (08:04)
[2016-07-07] MEDS: METOPROLOL SUCCINATE 50 MG TAB.ER.24H PO SCH (08:05)
[2016-07-07] MEDS: TIOTROPIUM BROMIDE INHALER IH SCH (08:05)
[2016-07-07] MEDS: DOCUSATE SODIUM 100 MG CAPSULE PO SCH ×2 (08:06→20:09)
[2016-07-07] MEDS: ALBUTEROL SULFATE 200 PUFF INHALER INH SCH ×2 (08:06→20:09)
[2016-07-07] MEDS: CHOLECALCIFEROL 1,000 UNIT TABLET PO SCH (08:09)
[2016-07-07] MEDS: HYDROcodone /APAP 5/325 1 EACH TABLET PO PRN (08:11)
[2016-07-07] MEDS: FERROUS SULFATE 325 MG TABLET PO SCH ×2 (11:06→18:59)
[2016-07-07] MEDS: POLYETHYLENE GLYCOL 3350 17 GM POWD.PACK PO SCH (11:07)
[2016-07-07] MEDS: PSYLLIUM SEED 1 EACH PACKET PO SCH (11:09)
[2016-07-07] MEDS: rOPINIRole HCL 1 MG TABLET PO SCH ×2 (11:09→20:10)
[2016-07-08] MEDS: DOCUSATE SODIUM 100 MG CAPSULE PO SCH ×2 (08:58→21:14)
[2016-07-08] MEDS: METOPROLOL SUCCINATE 50 MG TAB.ER.24H PO SCH (08:59)
[2016-07-08] MEDS: ALBUTEROL SULFATE 200 PUFF INHALER INH SCH ×2 (08:59→21:14)
[2016-07-08] MEDS: CHOLECALCIFEROL 1,000 UNIT TABLET PO SCH (08:59)
[2016-07-08] MEDS: TIOTROPIUM BROMIDE INHALER IH SCH (08:59)
[2016-07-08] MEDS: ENOXAPARIN SODIUM 40 MG/0.4 ML DISP.SYRIN SQ SCH (09:00)
[2016-07-08] MEDS: PSYLLIUM SEED 1 EACH PACKET PO SCH (11:12)
[2016-07-08] MEDS: FERROUS SULFATE 325 MG TABLET PO SCH ×2 (11:14→19:01)
[2016-07-08] MEDS: POLYETHYLENE GLYCOL 3350 17 GM POWD.PACK PO SCH (11:14)
[2016-07-08] MEDS: rOPINIRole HCL 1 MG TABLET PO SCH ×2 (15:25→21:14)
[2016-07-09] MEDS: TIOTROPIUM BROMIDE INHALER IH SCH (08:25)
[2016-07-09] MEDS: ALBUTEROL SULFATE 200 PUFF INHALER INH SCH ×2 (08:26→20:24)
[2016-07-09] MEDS: ENOXAPARIN SODIUM 40 MG/0.4 ML DISP.SYRIN SQ SCH (08:27)
[2016-07-09] MEDS: ASPIRIN 81 MG CHEW TAB PO SCH (08:29)
[2016-07-09] MEDS: CHOLECALCIFEROL 1,000 UNIT TABLET PO SCH (08:29)
[2016-07-09] MEDS: DOCUSATE SODIUM 100 MG CAPSULE PO SCH ×2 (08:29→20:25)
[2016-07-09] MEDS: METOPROLOL SUCCINATE 50 MG TAB.ER.24H PO SCH (08:31)
[2016-07-09] MEDS: POLYETHYLENE GLYCOL 3350 17 GM POWD.PACK PO SCH (12:06)
[2016-07-09] MEDS: PSYLLIUM SEED 1 EACH PACKET PO SCH (12:06)
[2016-07-09] MEDS: FERROUS SULFATE 325 MG TABLET PO SCH ×2 (12:06→18:44)
[2016-07-09] MEDS: rOPINIRole HCL 1 MG TABLET PO SCH ×2 (12:11→20:25)
[2016-07-10] MEDS: DOCUSATE SODIUM 100 MG CAPSULE PO SCH ×2 (07:46→20:46)
[2016-07-10] MEDS: METOPROLOL SUCCINATE 50 MG TAB.ER.24H PO SCH (07:47)
[2016-07-10] MEDS: TIOTROPIUM BROMIDE INHALER IH SCH (07:47)
[2016-07-10] MEDS: ALBUTEROL SULFATE 200 PUFF INHALER INH SCH ×2 (07:47→20:46)
[2016-07-10] MEDS: CHOLECALCIFEROL 1,000 UNIT TABLET PO SCH (07:49)
[2016-07-10] MEDS: ASPIRIN 81 MG CHEW TAB PO SCH (07:50)
[2016-07-10] MEDS: PSYLLIUM SEED 1 EACH PACKET PO SCH (12:02)
[2016-07-10] MEDS: FERROUS SULFATE 325 MG TABLET PO SCH ×2 (12:02→18:22)
[2016-07-10] MEDS: POLYETHYLENE GLYCOL 3350 17 GM POWD.PACK PO SCH (12:03)
[2016-07-10] MEDS: rOPINIRole HCL 1 MG TABLET PO SCH ×2 (12:05→20:46)
[2016-07-11] MEDS: METOPROLOL SUCCINATE 50 MG TAB.ER.24H PO SCH (07:44)
[2016-07-11] MEDS: DOCUSATE SODIUM 100 MG CAPSULE PO SCH ×2 (07:46→20:54)
[2016-07-11] MEDS: ASPIRIN 81 MG CHEW TAB PO SCH (07:46)
[2016-07-11] MEDS: ALBUTEROL SULFATE 200 PUFF INHALER INH SCH ×2 (07:47→20:54)
[2016-07-11] MEDS: CHOLECALCIFEROL 1,000 UNIT TABLET PO SCH (07:48)
[2016-07-11] MEDS: TIOTROPIUM BROMIDE INHALER IH SCH (07:48)
[2016-07-11] MEDS: FERROUS SULFATE 325 MG TABLET PO SCH ×2 (11:09→18:34)
[2016-07-11] MEDS: PSYLLIUM SEED 1 EACH PACKET PO SCH (11:09)
[2016-07-11] MEDS: POLYETHYLENE GLYCOL 3350 17 GM POWD.PACK PO SCH (11:10)
[2016-07-11] MEDS: rOPINIRole HCL 1 MG TABLET PO SCH ×2 (12:00→20:54)
[2016-07-12] MEDS: METOPROLOL SUCCINATE 50 MG TAB.ER.24H PO SCH (08:18)
[2016-07-12] MEDS: TIOTROPIUM BROMIDE INHALER IH SCH (08:19)
[2016-07-12] MEDS: ALBUTEROL SULFATE 200 PUFF INHALER INH SCH ×2 (08:20→20:04)
[2016-07-12] MEDS: CHOLECALCIFEROL 1,000 UNIT TABLET PO SCH (08:21)
[2016-07-12] MEDS: ASPIRIN 81 MG CHEW TAB PO SCH (08:21)
[2016-07-12] MEDS: DOCUSATE SODIUM 100 MG CAPSULE PO SCH ×2 (08:22→20:00)
[2016-07-12] MEDS: POLYETHYLENE GLYCOL 3350 17 GM POWD.PACK PO SCH (09:58)
[2016-07-12] MEDS: PSYLLIUM SEED 1 EACH PACKET PO SCH (09:58)
[2016-07-12] MEDS: FERROUS SULFATE 325 MG TABLET PO SCH ×2 (12:07→18:33)
[2016-07-12] MEDS: rOPINIRole HCL 1 MG TABLET PO SCH ×2 (12:07→20:01)
[2016-07-13] MEDS: CHOLECALCIFEROL 1,000 UNIT TABLET PO SCH (09:24)
[2016-07-13] MEDS: DOCUSATE SODIUM 100 MG CAPSULE PO SCH ×2 (09:25→21:04)
[2016-07-13] MEDS: ASPIRIN 81 MG CHEW TAB PO SCH (09:25)
[2016-07-13] MEDS: TIOTROPIUM BROMIDE INHALER IH SCH (09:25)
[2016-07-13] MEDS: ALBUTEROL SULFATE 200 PUFF INHALER INH SCH ×2 (09:25→21:04)
[2016-07-13] MEDS: METOPROLOL SUCCINATE 50 MG TAB.ER.24H PO SCH (09:26)
[2016-07-13] MEDS: FERROUS SULFATE 325 MG TABLET PO SCH ×2 (10:40→18:09)
[2016-07-13] MEDS: PSYLLIUM SEED 1 EACH PACKET PO SCH (10:41)
[2016-07-13] MEDS: POLYETHYLENE GLYCOL 3350 17 GM POWD.PACK PO SCH (11:13)
[2016-07-13] MEDS: HYDROcodone /APAP 5/325 1 EACH TABLET PO PRN (12:38)
[2016-07-13] MEDS: rOPINIRole HCL 1 MG TABLET PO SCH ×2 (12:39→21:04)
[2016-07-14] MEDS: ASPIRIN 81 MG CHEW TAB PO SCH (08:48)
[2016-07-14] MEDS: DOCUSATE SODIUM 100 MG CAPSULE PO SCH ×2 (08:48→20:47)
[2016-07-14] MEDS: ALBUTEROL SULFATE 200 PUFF INHALER INH SCH ×2 (08:49→20:48)
[2016-07-14] MEDS: TIOTROPIUM BROMIDE INHALER IH SCH (08:49)
[2016-07-14] MEDS: METOPROLOL SUCCINATE 50 MG TAB.ER.24H PO SCH (08:52)
[2016-07-14] MEDS: CHOLECALCIFEROL 1,000 UNIT TABLET PO SCH (08:53)
[2016-07-14] MEDS: PSYLLIUM SEED 1 EACH PACKET PO SCH (11:43)
[2016-07-14] MEDS: POLYETHYLENE GLYCOL 3350 17 GM POWD.PACK PO SCH (11:43)
[2016-07-14] MEDS: rOPINIRole HCL 1 MG TABLET PO SCH ×2 (12:34→20:48)
[2016-07-14] MEDS: FERROUS SULFATE 325 MG TABLET PO SCH (18:53)
--- NOTE | 2016-07-15 07:43 | Discharge Summary ---
Discharge Summary - Discharge Sumary History of Present Illness: Thisis an 86 year old female admitted with a left hip fracture after having a fall at the grocery store on . She initially presented to the [facility] ER, and was noted to have a left intertrochanteric hip fracture. She was taken to the OR by Dr. Pradeep Buck who did a left hip pinning on June 23. Her recovery has been fairly unremarkable, and she presents to our facility for OT/PT so that she can return to her home on discharge. Condition at Discharge: Stable Home Medications: Ambulatory Orders Medication Instructions Recorded Hydroxyzine Pamoate 25 mg PO DAILY 06/22/16 Acetaminophen [Tylenol] 650 mg PO Q4H PRN #0 tablet 07/12/16 Aspirin [Kathy] 81 mg PO DAILY tab.chew 07/12/16 Cholecalciferol [Vitamin D-3] 2,000 unit PO DAILY tablet 07/12/16 Docusate Sodium [Colace] 100 mg PO BID capsule 07/12/16 Ferrous Sulfate [Feosol] 325 mg PO [id number] tablet. 07/12/16 Ipratropium/Albuterol Sulfate 3 ml NEB Q6 PRN #0 ampul.neb 07/12/16 [Duoneb] Metoprolol Succinate [Toprol XL] 25 mg PO DAILY tab.er.24h 07/12/16 Polyethylene Glycol 3350 [Miralax] 17 gm PO 1100 powd.pack 07/12/16 Tiotropium [place] [Spiriva] 1 inh IH DAILY inhaler 07/12/16 oxyCODONE HCL [Oxycontin] 20 mg PO BID tab.er.12h 07/12/16 rOPINIRole HCL [Requip] 2 mg PO 12HS tablet 07/12/16 HYDROcodone /APAP 5/325 [[place] 1 each PO Q4 PRN #0 tablet 07/15/16 5/325] Hydroxyzine HCl [Atarax] 25 mg PO Q8 PRN #0 tablet 07/15/16 Consultations this Visit: None Procedures this Visit: None Allergies/Adverse Reactions: Allergies Allergy/AdvReac Type Severity Reaction Status Date / Time No Known Allergies Allergy Verified 06/22/16 16:13 Patient Problems: Current Active Problems Problem Status Onset Anemia Acute CAD (coronary artery disease) Acute COPD (chronic obstructive pulmonary disease) Acute Hypertension Acute Intertrochanteric fracture of left femur Acute Discharge Summary: Patient was admitted for SNF care following a fall resulting in L hip fracture with surgical repair. She did well with PT/OT and progressed to being more independent. As patient lives alone, family decided to have her go to [facility] at discharge to do more PT/OT. Patient unsure at this time if she will ever go home. At first, pain control was a little difficult. Patient now is on oxycontin 20 mg bid with norco for breakthrough pain. Bowels working well on current regimen. Post op anemia is stable. Hospital Course: Discharge Dx: L hip fracture. HTN. Chronic Pain from OA. anemia. Disposition - [facility]
[2016-07-15 07:53] VITALS: BP 152/77
[2016-07-15] MEDS: ALBUTEROL SULFATE 200 PUFF INHALER INH SCH (08:15)
[2016-07-15] MEDS: DOCUSATE SODIUM 100 MG CAPSULE PO SCH (08:15)
[2016-07-15] MEDS: TIOTROPIUM BROMIDE INHALER IH SCH (08:16)
[2016-07-15] MEDS: CHOLECALCIFEROL 1,000 UNIT TABLET PO SCH (08:16)
[2016-07-15] MEDS: METOPROLOL SUCCINATE 50 MG TAB.ER.24H PO SCH (08:16)
[2016-07-15] MEDS: ASPIRIN 81 MG CHEW TAB PO SCH (08:17)
== END 2016-07-15 10:04 | DRG 536 ==
LOC: SOUTH 16:40
PROVIDERS: ADMIT Family Medicine; ATTEND Family Medicine
DX: S72.142A Displaced intertrochanteric fracture of left femur, initial encounter for closed fracture (principal); Y92.512 Supermarket, store or market as the place of occurrence of the external cause; M16.11 Unilateral primary osteoarthritis, right hip; J43.1 Panlobular emphysema; I25.10 Atherosclerotic heart disease of native coronary artery without angina pectoris; I10 Essential (primary) hypertension
CPT/HCPCS: 36415; 80053; 85025; 97110; 97112; 97116; 97165; 97530; 97535; A9270; J1650

== ENCOUNTER 2016-08-04 14:07 | Outpatient (CLI) | payer MEDICARE ==
--- NOTE | 2016-08-09 13:47 | OP Clinic Progress Note ---
REFERRING PHYSICIAN: Dr. Jocelyne Thomas REASON FOR VISIT: This very pleasant minimally active 86-year-old lady was seen with right ear otalgia and discomfort. She comes in in a wheelchair as she is rehabilitating from a broken hip and surgery. She has been significantly imbalanced for a number of years and tends to walk with a cane. She broke her hip by simply standing and, while she was standing, she just lost her balance and fell backwards. She feels like she loses her balance a lot. She touches furniture as she walks and uses her cane. She has an aching discomfort in the right ear that comes and goes. Both ear canals are fairly clear. Patient does have a retracted stiff right eardrum and a little bit dusky in colon as compared to the left ear. The left ear appears much more normal. She is also point tender under the submastoid area on the right side but not on the left. 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 In the future, a myringotomy with or without tube would be my recommendation. I would not tend to give her pills particularly as she is already in rehab. I described these issues along with the transporter. Patient is very clear that she would like to go ahead with this and prefers not to try to take any other medications. She will make her own appointment as she continues to follow up in this regard. cc: Dr. Jocelyne NEWTON
== END 2016-08-04 14:10 ==
LOC: ENT 14:07
PROVIDERS: ATTEND Otolaryngology
DX: H92.01 Otalgia, right ear (principal)
CPT/HCPCS: G0463

== ENCOUNTER 2016-10-28 14:30 | Outpatient (CLI) | payer MEDICARE ==
[2016-10-28 14:44] LABS: BASOPHILS % 0.2 (0.0-1.5); EOSINOPHILS % 1.2 % (0.0-6.8); MEAN CORPUSCULAR HEMOGLOBIN 33.6 pg (28.0-34.0); MONOCYTES % 7.2 % (0.0-11.0); NEUTROPHILS # 4.8 # k/uL (1.4-7.7)
== END 2016-10-28 14:45 ==
LOC: LAB 14:30
PROVIDERS: ATTEND Family Medicine
DX: D50.9 Iron deficiency anemia, unspecified (principal)
CPT/HCPCS: 36415; 85025

== ENCOUNTER 2017-04-06 14:50 | Outpatient (CLI) | payer MEDICARE ==
[2017-04-06 15:08] LABS: EOSINOPHILS % 0.1 % (0.0-6.8); MEAN CORPUSCULAR HEMOGLOBIN 22.3 pg (28.0-34.0); MEAN CORPUSCULAR VOLUME 84.9 fl (80.0-100.0); MONOCYTES % 6.5 % (0.0-11.0); NEUTROPHILS # 8.5 # k/uL (1.4-7.7)
[2017-04-06 15:45] LABS: ANISOCYTOSIS 1+ (NEGATIVE); HYPOCHROMASIA 1+ (NEGATIVE)
== END 2017-04-06 14:52 ==
LOC: LAB 14:50
PROVIDERS: ATTEND Family Medicine
DX: R53.83 Other fatigue (principal)
CPT/HCPCS: 36415; 85025

== ENCOUNTER 2017-06-21 15:04 | Outpatient (CLI) | payer MEDICARE ==
[2017-06-21 15:15] LABS: MEAN CORPUSCULAR HEMOGLOBIN 30.8 pg (28.0-34.0); MEAN CORPUSCULAR VOLUME 95.2 fl (80.0-100.0)
== END 2017-06-21 15:05 ==
LOC: LAB 15:04
PROVIDERS: ATTEND Family Medicine
DX: D50.9 Iron deficiency anemia, unspecified (principal)
CPT/HCPCS: 36415; 85027

== ENCOUNTER 2018-03-01 10:25 | Outpatient (CLI) | payer MEDICARE ==
[2018-03-01 10:52] LABS: MEAN CORPUSCULAR HEMOGLOBIN 24.4 pg (28.0-34.0)
--- NOTE | 2018-03-01 19:49 | Diagnostic Imaging Report ---
ALBER OLIVARES [facility] [address] [facility] [address] [address] Report Submission Date: Mar 01, 2018 11:15:48 AM CDT Patient Study Name: RAMIREZ HINSON Date: Mar 01, 2018 10:36:42 AM CDT Modality Type: DX Gender: F Description: LOWER EXTREMITY : 28 Institution: [facility] Physician: ALBER OLIVARES Examination: Plain film knees History: PT STATES CHRONIC KNEE PAIN X 20 YEARS IN BOTH KNEES (Hx) Findings: 3 views of the right and left knee demonstrates osteopenia. Articular and patellar spurring. Medial joint space narrowing. Small suprapatellar joint effusions. Posterior vascular calcifications. Impression: Advanced articular degenerative changes. Electronically signed on Mar 01, 2018 11:15:48 AM CDT by: Kerwin NEWTON
[2018-03-02 23:40] LABS: IRON SERUM 245 ug/dL (37-145); SERUM IRON 245 ug/dL (37-145)
== END 2018-03-01 10:50 ==
LOC: LAB 10:25
PROVIDERS: ATTEND Family Medicine
DX: M25.561 Pain in right knee (principal); M25.562 Pain in left knee; G89.29 Other chronic pain; Z86.2 Personal history of diseases of the blood and blood-forming organs and certain disorders involving the immune mechanism
CPT/HCPCS: 36415; 82728; 83540; 83550; 85027

== ENCOUNTER 2018-03-02 08:11 | Outpatient (CLI) | payer MEDICARE ==
[2018-03-02] MEDS ORDERED: ACETAMINOPHEN 325 MG TABLET ONE ×2 (09:08→14:06)
[2018-03-02] MEDS ORDERED: diphenhydrAMINE HCL 25 MG TABLET PO ONE ×2 (09:09→14:07)
[2018-03-02] MEDS ORDERED: 0.9 % SODIUM CHLORIDE 100 ML IV ONE ×2 (09:53→14:06)
[2018-03-02] MEDS ORDERED: FUROSEMIDE 20 MG/2 ML VIAL ONE (14:07)
== END 2018-03-02 15:24 ==
LOC: INF 08:11
PROVIDERS: ATTEND Family Medicine
DX: D50.9 Iron deficiency anemia, unspecified (principal)
CPT/HCPCS: 36415; J1940; Q0163; 36430; 96374; P9040; S1016

== ENCOUNTER 2018-03-08 10:47 | Outpatient (CLI) | payer MEDICARE ==
[2018-03-08 11:46] LABS: BASOPHILS % 0.3 (0.0-1.5); MONOCYTES % 9.9 % (0.0-11.0); NEUTROPHILS # 6.5 # k/uL (1.4-7.7)
[2018-03-08 15:22] LABS: IRON SERUM 43 ug/dL (37-145); SERUM IRON 43 ug/dL (37-145)
== END 2018-03-08 10:49 ==
LOC: LAB 10:47
PROVIDERS: ATTEND Family Medicine
DX: D50.9 Iron deficiency anemia, unspecified (principal)
CPT/HCPCS: 36415; 82728; 83540; 83550; 85025

== ENCOUNTER 2018-06-10 13:34 | Inpatient (IN) | payer MEDICARE ==
--- NOTE | 2018-06-10 13:38 | ED Physician Documentation ---
General Adult - HISTORIAN Historian: patient - HPI Stated Complaint: shortness of breath since this am Chief Complaint: Wheezing Onset: hours (5) Timing: still present Severity: mild Further Comments: yes (Per daughter she has a history of COPD - she did have a breathing treatment before coming to the ER. The nurse where the pt lives told the daughter she started feeling short on air earlier this am. She has no fever. She denies any pain. She states she has a history of anemia which they cannot find the root cause they have just been "treating it with blood products when it is time" She has no further complaints. She does not wear oxygen at her home.) Last known Well Code/Unknown Code: Unknown - ROS CONST: weakness, other (shortness of breath ) EYES/ENT: none CVS/RESP: shortness of breath. denies: chest pain, cough GI/: none MS/SKIN/LYMPH: none NEURO/PSYCH: denies: headache - PAST HX Past History: COPD, hypertension Surgeries/Procedures: cardiac stent Immunizations: UTD Allergies/Adverse Reactions: Allergies Allergy/AdvReac Type Severity Reaction Status Date / Time cephalexin monohydrate Allergy Intermediate Nausea/Vomi Verified 06/10/18 14:33 ting sulfamethoxazole Allergy Intermediate Nausea/Vomi Verified 06/10/18 14:33 ting trimethoprim Allergy Intermediate Nausea/Vomi Verified 06/10/18 14:33 ting Home Medications: Ambulatory Orders Medication Instructions Recorded Hydroxyzine Pamoate 25 mg PO DAILY 06/22/16 Acetaminophen [Tylenol] 650 mg PO Q4H PRN #0 tablet 07/12/16 Aspirin [Kathy] 81 mg PO DAILY tab.chew 07/12/16 Cholecalciferol [Vitamin D-3] 2,000 unit PO DAILY tablet 07/12/16 Docusate Sodium [Colace] 100 mg PO BID capsule 07/12/16 Ferrous Sulfate [Feosol] 325 mg PO [id number] tablet. 07/12/16 Ipratropium/Albuterol Sulfate 3 ml NEB Q6 PRN #0 ampul.neb 07/12/16 [Duoneb] Metoprolol Succinate [Toprol XL] 25 mg PO DAILY tab.er.24h 07/12/16 Polyethylene Glycol 3350 [Miralax] 17 gm PO 1100 powd.pack 07/12/16 Tiotropium [place] [Spiriva] 1 inh IH DAILY inhaler 07/12/16 oxyCODONE HCL [Oxycontin] 20 mg PO BID tab.er.12h 07/12/16 rOPINIRole HCL [Requip] 2 mg PO 12HS tablet 07/12/16 HYDROcodone /APAP 5/325 [[place] 1 each PO Q4 PRN #0 tablet 07/15/16 5/325] Hydroxyzine HCl [Atarax] 25 mg PO Q8 PRN #0 tablet 07/15/16 - SOCIAL HX Smoking History: non-smoker Alcohol Use: none Drug Use: none - FAMILY HX Family History: No - VITAL SIGNS Vital Signs: Vital Signs Temp Pulse Resp BP Pulse Ox 152/77 07/15/16 07:51 - REVIEWED ASSESSMENTS Nursing Assessment Reviewed: Yes Vitals Reviewed: Yes Progress - Progress Progress: 1510: discussed results with Dr Tomas and family. Agreeable to admission DG ED Results Lab/Radiology - Radiology Radiology Impressions: Ap portable upright radiographs of the chest Clinical history: Shortness of breath Technique: anterior /posterior portable upright Findings: Lung [place] are hyperinflated. Cardiomegaly and aortic arch calcification. A left pleural effusion is present. Subsegmental atelectasis is present in the right lung base and there is right costophrenic angle blunting Impression: Hyperinflation no acute infiltrate. Pleural effusions Aortic atherosclerosis Electronically signed on Jun 10, 2018 2:05:55 PM DIATHERMY EQUIPMENT REPAIRER by: Eric Ku General Adult Physical Exam - PHYSICAL EXAM GENERAL APPEARANCE: mild distress EENT: eye inspection normal, no signs of dehydration NECK: normal inspection RESPIRATORY: chest non-tender, wheezes CVS: reg rate & rhythm, heart sounds normal ABDOMEN: soft, normal bowel sounds BACK: normal inspection SKIN: warm/dry, pallor EXTREMITIES: non-tender, normal range of motion, no evidence of injury, no edema NEURO: oriented X3 Discharge Clincal Impression: Anemia Qualifiers: Anemia type: unspecified type Qualified Code(s): D64.9 - Anemia, unspecified Referrals: Jocelyne Thomas MD [Primary Care Provider] - 2 Days Condition: Fair Disposition: ADMITTED INPATIENT Decision to Admit: [id number] Date of Decison to Admit: 06/10/18 Decision Time: 15:10
[2018-06-10] MEDS ORDERED: IPRATROPIUM/ALBUTEROL SULFATE 3 ML AMPUL.NEB NEB ONE (14:06)
[2018-06-10 14:09] LABS: MEAN CORPUSCULAR HEMOGLOBIN 21.7 pg (28.0-34.0)
[2018-06-10 14:10] LABS: BASOPHILS % 0.3 (0.0-1.5); EOSINOPHILS % 0.9 % (0.0-6.8); MONOCYTES % 8.6 % (0.0-11.0)
[2018-06-10 14:23] LABS: eGFR (Non-African) > 60
--- NOTE | 2018-06-10 14:49 | Diagnostic Imaging Report ---
LIDA FERNÁNDEZ [facility] [address] [facility] [address] [place], [place]. [address] Report Submission Date: Jun 10, 2018 2:05:55 PM BOLTER HELPER Patient Study Name: RAMIREZ HINSON Date: Jun 10, 2018 1:49:58 PM BOLTER HELPER Modality Type: DX Gender: F Description: CHEST 1VIEW : 28 Institution: [facility] Physician: LIDA FERNÁNDEZ Ap portable upright radiographs of the chest Clinical history: Shortness of breath Technique: anterior /posterior portable upright Findings: Lung mont[place] are hyperinflated. Cardiomegaly and aortic arch calcification. A left pleural effusion is present. Subsegmental atelectasis is present in the right lung base and there is right costophrenic angle blunting Impression: Hyperinflation no acute infiltrate. Pleural effusions Aortic atherosclerosis Electronically signed on Jun 10, 2018 2:05:55 PM BOLTER HELPER by: Eric NEWTON
[2018-06-10] MEDS ORDERED: ACETAMINOPHEN 325 MG TABLET PO PRN (15:40)
[2018-06-10] MEDS ORDERED: HYDROcodone /APAP 5/325 1 EACH TABLET PO PRN (15:40)
--- NOTE | 2018-06-10 17:16 | History and Physical Report ---
History of Present Illnes - History of Present Illness Reason for Visit: Anemia, CHF History of Present Illness: This is an 88 year old female patient of Dr. Marrero who presented with shortness of breath to the ER today. Her Hgb was 5.9, and her CXR showed no infiltrates, but did show some cardiomegaly. She has a markedly elevated BNP. Renal function is fairly well preserved. She has a history of needing transfusions for her anemia, but the cause of this has not been able to be determined. She does have a history of COPD. 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 denies: Pneumococcal Vaccine Influenza Vaccine: Current for this Influenza Season Pneumonia Vaccine: Yes Resuscitation Status: Resusciation Status Resuscitation Status Do Not Resuscitate - Unable to Obtain History Unable to Obtain: No Review of Systems - Review of Systems Constitutional: negative: Fever Eyes: negative: pain ENT: negative: Ear Pain, Ear Discharge Respiratory: Shortness of Breath, SOB with Excertion Cardiovascular: negative: Chest Pain Gastrointestinal: negative: Nausea, Vomiting Genitourinary: negative: Dysuria Musculoskeletal: negative: Neck Pain Skin: negative: Rash Neurological: Weakness. negative: Incoordination, Change in Speech - Medications/Allergies Allergies/Adverse Reactions: Allergies Allergy/AdvReac Type Severity Reaction Status Date / Time cephalexin monohydrate Allergy Intermediate Nausea/Vomi Verified 06/10/18 14:33 ting sulfamethoxazole Allergy Intermediate Nausea/Vomi Verified 06/10/18 14:33 ting trimethoprim Allergy Intermediate Nausea/Vomi Verified 06/10/18 14:33 ting Current Inpatient Medications: Current Inpatient Medications Acetaminophen (Tylenol) 650 mg PO Q4H PRN PRN Reason: PAIN OR TEMPERATURE > 101 Albuterol/Ipratropium (Duoneb) 3 ml NEB Q4 [facility] Budesonide (Pulmicort) 0.5 mg NEB BID [facility] Diphenhydramine HCl (Benadryl) 25 mg PO Q6 PRN PRN Reason: Transfusion Furosemide (Lasix) 20 mg IVP 714 [facility] Metoprolol Tartrate (Lopressor) 50 mg PO BID [facility] Pantoprazole Sodium (Protonix) 40 mg PO 0700 [facility] Sodium Chloride (Normal Saline Flush) 3 ml IV BID [facility] Exam - Exam Vital Signs: Vital Signs (72 hours) 06/10/18 06/10/18 06/10/18 13:36 13:42 14:42 Temperature 97.1 F L Pulse Rate Pulse Rate [ 68 Left Pulse ox] Respiratory 36 H Rate Blood Pressure [Left Arm] Blood Pressure 138/48 [Right Arm] O2 Sat by Pulse 87 L 92 98 Oximetry 06/10/18 06/10/18 06/10/18 15:00 15:23 16:05 Temperature 98.4 F Pulse Rate 74 Pulse Rate [ 72 81 Left Pulse ox] Respiratory 18 18 Rate Blood Pressure 176/82 [Left Arm] Blood Pressure 180/60 [Right Arm] O2 Sat by Pulse 100 93 Oximetry General: Alert, Oriented to Person, Oriented to Place, Oriented to Time HEENT: Atraumatic, PERRLA, Other (conjunctival pallor) Neck: No: Stridor Lungs: Clear to auscultation, Decreased Air Movement Cardiovascular: Regular rate, Normal S1, Normal S2 Murmur: No: Systolic Murmur Abdomen: Normal bowel sounds, Soft, No tenderness Genitourinary: No: Other Male Genitourinary: No: Other Female Genitourinary: No: Other Integumentary: Pale Extremities: No clubbing, No cyanosis, No edema Neurological: Normal speech, Cranial nerves 3-12 NL, Generalized Weakness Psych/Mental Status: Mental status NL - Laboratory Results Laboratory Results: Laboratory Results 06/10/18 06/10/18 06/10/18 13:50 13:50 13:50 WBC 9.20 RBC 2.73 L Hgb 5.9 L* Hct 19.9 L MCV 73.0 L MCH 21.7 L MCHC 29.7 L RDW 16.8 H Plt Count 377 Neut % (Auto) 76.2 Lymph % (Auto) 14.0 L [place] % (Auto) 8.6 Eos % (Auto) 0.9 Baso % (Auto) 0.3 Neut # (Auto) 7.0 Lymph # (Auto) 1.3 [place] # (Auto) 0.8 Eos # (Auto) 0.1 Baso # (Auto) 0.0 PT 12.2 H INR 1.16 Sodium 134 L Potassium 3.8 Chloride 93 L Carbon Dioxide 34 H BUN 16 Creatinine 0.60 Estimated Creat Clear 60 Est GFR ( Amer) > 60 Est GFR (Non-Af Amer) > 60 Glucose 133 H Calcium 8.5 Total Bilirubin 0.4 AST 29 ALT 21 Alkaline Phosphatase 62 Troponin I NT-Pro-B Natriuret Pep Total Protein 6.7 Albumin 4.2 06/10/18 13:50 WBC RBC Hgb Hct MCV MCH MCHC RDW Plt Count Neut % (Auto) Lymph % (Auto) [place] % (Auto) Eos % (Auto) Baso % (Auto) Neut # (Auto) Lymph # (Auto) [place] # (Auto) Eos # (Auto) Baso # (Auto) PT INR Sodium Potassium Chloride Carbon Dioxide BUN Creatinine Estimated Creat Clear Est GFR ( Amer) Est GFR (Non-Af Amer) Glucose Calcium Total Bilirubin AST ALT Alkaline Phosphatase Troponin I < 0.03 L NT-Pro-B Natriuret Pep 3082.9 H Total Protein Albumin Assessment/Plan - Assessment/Plan (1) Anemia Status: Acute Current Visit: Yes Qualifiers: Anemia type: unspecified type Qualified Code(s): D64.9 - Anemia, unspecified Assessment: I believe that with a hemoglobin of 5.9, she will need to be transfused at least three units of packed red blood cells to get her hemoglobin back up to at least 10 Continue iron supplementation Benadryl for pre treatment Lasix 20 mg IV after each unit Check CBC in the am (2) Congestive heart failure Status: Acute Current Visit: Yes Qualifiers: Heart failure type: unspecified Heart failure chronicity: acute Qualified Code(s): I50.9 - Heart failure, unspecified Assessment: Diuresis with IV lasix (3) COPD (chronic obstructive pulmonary disease) Status: Acute Current Visit: No Qualifiers: COPD type: emphysema Emphysema type: panlobular Qualified Code(s): J43.1 - Panlobular emphysema Assessment: Continue nebulizer treatments She no longer smokes VTE Assessment - RISK FACTOR SCORE VTE RISK FACTOR SCORES: AGE OVER 60 YEARS, ANTICIPATED BED CONFINEMENT OR IMMOBILIZATION > 24 HOURS (I did not anticoagulate her due to suspected GI bleeding as the cause of her anemia.)
[2018-06-10] MEDS: IPRATROPIUM/ALBUTEROL SULFATE 3 ML AMPUL.NEB NEB SCH ×2 (17:31→21:06)
[2018-06-10] MEDS ORDERED: 0.9 % SODIUM CHLORIDE 500 ML IV ONE ×2 (17:32→21:35)
[2018-06-10] MEDS ORDERED: diphenhydrAMINE HCL 25 MG TABLET PO ONE ×2 (17:41→22:31)
[2018-06-10] MEDS: diphenhydrAMINE HCL 25 MG TABLET PO PRN ×2 (17:43→22:30)
[2018-06-10] MEDS ORDERED: FUROSEMIDE 20 MG/2 ML VIAL ONE (18:59)
[2018-06-10] MEDS ORDERED: METOPROLOL TARTRATE 50 MG TABLET ONE (19:01)
[2018-06-10] MEDS ORDERED: BUDESONIDE 0.5MG/2ML AMPUL.NEB NEB ONE (19:02)
[2018-06-10] MEDS: SALINE FLUSH 10 ML DISP.SYRIN IV SCH (20:36)
[2018-06-10] MEDS: METOPROLOL TARTRATE 50 MG TABLET PO SCH (20:36)
[2018-06-10] MEDS ORDERED: ACETAMINOPHEN 325 MG TABLET ONE (21:34)
[2018-06-10] MEDS: FUROSEMIDE 20 MG/2 ML VIAL IVP SCH (21:35)
[2018-06-10] MEDS: BUDESONIDE 0.5MG/2ML AMPUL.NEB NEB SCH (22:07)
[2018-06-11] MEDS ORDERED: IPRATROPIUM/ALBUTEROL SULFATE 3 ML AMPUL.NEB NEB ONE ×4 (00:02→13:01)
[2018-06-11] MEDS: IPRATROPIUM/ALBUTEROL SULFATE 3 ML AMPUL.NEB NEB SCH ×4 (00:55→13:32)
[2018-06-11] MEDS ORDERED: FUROSEMIDE 20 MG/2 ML VIAL ONE (02:08)
[2018-06-11] MEDS: FUROSEMIDE 20 MG/2 ML VIAL IVP SCH (02:37)
[2018-06-11] MEDS ORDERED: PANTOPRAZOLE SODIUM 40 MG TABLET.DR ONE (04:36)
[2018-06-11] MEDS ORDERED: PANTOPRAZOLE SODIUM 40 MG TABLET.DR PO SCH (07:00)
[2018-06-11 07:19] LABS: MEAN CORPUSCULAR HEMOGLOBIN 25.7 pg (28.0-34.0)
[2018-06-11 07:20] LABS: BASOPHILS % 0.4 (0.0-1.5); MONOCYTES % 11.4 % (0.0-11.0); NEUTROPHILS # 6.2 # k/uL (1.4-7.7)
[2018-06-11] MEDS ORDERED: METOPROLOL TARTRATE 50 MG TABLET ONE (07:21)
[2018-06-11 07:30] LABS: eGFR (Non-African) > 60
[2018-06-11] MEDS: METOPROLOL TARTRATE 50 MG TABLET PO SCH (08:27)
[2018-06-11] MEDS ORDERED: BUDESONIDE 0.5MG/2ML AMPUL.NEB NEB ONE (08:51)
[2018-06-11] MEDS: BUDESONIDE 0.5MG/2ML AMPUL.NEB NEB SCH (09:17)
[2018-06-11] MEDS: SALINE FLUSH 10 ML DISP.SYRIN IV SCH (09:18)
[2018-06-11] MEDS ORDERED: POTASSIUM CHLORIDE 20 MEQ TABLET.ER PO SCH (11:00)
--- NOTE | 2018-06-11 11:05 | Discharge Summary ---
Discharge Summary - Discharge Sumary History of Present Illness: 88 year old female admitted with a hemoglobin of 5.9. This is presumed to be due to chronic GI blood loss, however the site has not been able to be identified. She has been transfused previously and had significant improvement in her symptoms Home Medications: Ambulatory Orders Medication Instructions Recorded Acetaminophen [Tylenol] 650 mg PO Q4H PRN #0 tablet 07/12/16 Docusate Sodium [Colace] 100 mg PO BID capsule 07/12/16 Ipratropium/Albuterol Sulfate 3 ml NEB Q6 PRN #0 ampul.neb 07/12/16 [Duoneb] oxyCODONE HCL [Oxycontin] 20 mg PO BID tab.er.12h 07/12/16 HYDROcodone /APAP 5/325 [[place] 1 each PO Q4 PRN #0 tablet 07/15/16 5/325] Consultations this Visit: None Procedures this Visit: Transfusion (Two units of packed red blood cells) Allergies/Adverse Reactions: Allergies Allergy/AdvReac Type Severity Reaction Status Date / Time cephalexin monohydrate Allergy Intermediate Nausea/Vomi Verified 06/10/18 14:33 ting sulfamethoxazole Allergy Intermediate Nausea/Vomi Verified 06/10/18 14:33 ting trimethoprim Allergy Intermediate Nausea/Vomi Verified 06/10/18 14:33 ting Patient Problems: Current Active Problems Problem Status Onset Anemia Acute Congestive heart failure Acute Discharge Summary: She was transfused two units of packed red blood cells, with 20 mg of IV lasix after each unit. Her hemoglobin was back up to 8.8 the next morning. Her potassium was down from 3.8 to 3.1, so oral supplementation was started. She will have a BMP tomorrow morning. Follow up with Dr. Thomas in one week.
[2018-06-11] MEDS ORDERED: POTASSIUM CHLORIDE 20 MEQ TABLET.ER ONE (11:18)
[2018-06-11 13:33] VITALS: BP 107/44
== END 2018-06-11 14:00 | disposition home or self-care (01) | DRG 812 ==
LOC: ED 13:34 → SOUTH 15:12
PROVIDERS: ADMIT Family Medicine; ATTEND Family Medicine
DX: D64.9 Anemia, unspecified (principal); I50.9 Heart failure, unspecified; J43.1 Panlobular emphysema; J44.9 Chronic obstructive pulmonary disease, unspecified; I10 Essential (primary) hypertension
CPT/HCPCS: 36430; 71045; 80053; 83880; 84484; 85025; 85027; 85610; 93005; 94640; 99284; A9270; J1940; J7060; J7626; Q0163; 99222; 99238; P9040; S1016

== ENCOUNTER 2018-06-20 13:19 | Outpatient (CLI) | payer MEDICARE, OTHER ==
--- NOTE | 2018-06-20 15:15 | Diagnostic Imaging Report ---
ALBER OLIVARES [facility] [address] [facility] [address] Report Submission Date: Jun 20, 2018 2:37:36 PM COTTAGE ATTENDANT Patient Study Name: RAMIREZ HINSON Date: Jun 20, 2018 1:37:00 PM COTTAGE ATTENDANT Modality Type: DX Gender: F Description: CHEST 2VIEW : 28 Institution: [facility] Physician: ALBER OLIVARES PA and lateral chest History: Cough. Lethargy. PA and lateral chest dated June 20, 2018 is compared with June 10, 2018. The lungs are hyperinflated. Heart size is within normal limits. Aortic atherosclerosis is present. There is dextroscoliosis of the lower thoracic spine. There is unchanged mild blunting of the left costophrenic angle which may be chronic. Otherwise, the left lung is clear. There is a streaky area of linear density at the right upper lobe. This finding was retrospectively present but better visualized today. This finding could represent a small region of right upper lobe infiltrate but could also represent a chronic region of scarring. Impression: Stable minor blunting of the left costophrenic angle, possibly chronic. Hyperinflation. Aortic atherosclerosis. Streaky linear density at the right upper lobe which retrospectively is unchanged. This finding could represent a small persisting region of right upper lobe infiltrate but may also represent a small and unchanged area of scarring. Electronically signed on Jun 20, 2018 2:37:36 PM COTTAGE ATTENDANT by: Sherlyn NEWTON
[2018-06-22 12:51] LABS: MEAN CORPUSCULAR HEMOGLOBIN 25.1 pg (28.0-34.0)
[2018-06-22 12:52] LABS: BASOPHILS % 0.4 (0.0-1.5); EOSINOPHILS % 2.2 % (0.0-6.8); MONOCYTES % 5.5 % (0.0-11.0); NEUTROPHILS # 5.1 # k/uL (1.4-7.7)
== END 2018-06-20 13:21 ==
LOC: LAB 13:19
PROVIDERS: ATTEND Family Medicine
DX: D64.9 Anemia, unspecified (principal); R91.8 Other nonspecific abnormal finding of lung field; R06.02 Shortness of breath; J90 Pleural effusion, not elsewhere classified
CPT/HCPCS: 36415; 71046; 82728; 83540; 83550; 83880; 85025; 86885; 86900; 86920; P9040

== ENCOUNTER 2018-06-27 13:11 | Outpatient (CLI) | payer MEDICARE, OTHER ==
[2018-06-27] MEDS ORDERED: IRON SUCROSE COMPLEX 200 MG in 0.9 % SODIUM CHLORIDE 100 ML IV SCH (14:00)
== END 2018-06-27 13:12 ==
LOC: INF 13:11
PROVIDERS: ATTEND Family Medicine
DX: D50.9 Iron deficiency anemia, unspecified (principal)
CPT/HCPCS: 96365; J1756

== ENCOUNTER 2018-07-06 13:26 | Emergency (ER) | payer MEDICARE, OTHER ==
[2018-07-06 14:01] LABS: MEAN CORPUSCULAR HEMOGLOBIN 26.3 pg (28.0-34.0)
[2018-07-06 14:02] LABS: BASOPHILS % 0.5 (0.0-1.5); EOSINOPHILS % 2.3 % (0.0-6.8); MONOCYTES % 6.4 % (0.0-11.0); NEUTROPHILS # 4.8 # k/uL (1.4-7.7)
[2018-07-06 14:25] LABS: eGFR (Non-African) > 60
--- NOTE | 2018-07-06 15:04 | ED Physician Documentation ---
Syncope/Near Syncope - HISTORIAN Historian: patient, paramedics - [facility] Stated Complaint: syncopal episode Chief Complaint: Near Syncope Witnessed By: bystander ([facility] ) Position at Time of Episode: sitting Symptoms Prior to Episode: none Symptoms after Event: denies: confused after event, incontinent of urine, incontinent of stool Location of Injury: none Associated Symptoms: none Further Comments: yes (88 year old female patient brought in via EMS from [facility] after a syncopal episode at the lunch table. Patient became unresponsive for a "short time" per EMS, patient does not recall event. No loss of bowel or bladder with episode. Patient denies SOB, CP or N/V.) - ROS CONST: recent illness (Jun 10, [address] 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) PE Risk Factors: hypertension Surgeries/Procedures: appendectomy, other (tonsilectomy, Left Lobectomy, Left hip pinning, Cardiac stent.) Allergies/Adverse Reactions: Allergies Allergy/AdvReac Type Severity Reaction Status Date / Time cephalexin monohydrate Allergy Intermediate Nausea/Vomi Verified 07/06/18 13:49 ting sulfamethoxazole Allergy Intermediate Nausea/Vomi Verified 07/06/18 13:49 ting trimethoprim Allergy Intermediate Nausea/Vomi Verified 07/06/18 13:49 ting Home Medications: Ambulatory Orders Medication Instructions Recorded Ipratropium/Albuterol Sulfate 3 ml NEB Q6 PRN #0 ampul.neb 07/12/16 [Duoneb] Albuterol Sulfate [Proair Hfa] 90 mcg PO Q4H PRN 07/06/18 Mag Hydrox/Aluminum Hyd/Simeth 30 ml PO DAILY PRN 07/06/18 [Mylanta] Magnesium Hydroxide [Milk of 30 ml PO DAILY PRN 07/06/18 Magnesia] Polyethylene Glycol 3350 [Miralax] 17 gm PO DAILY PRN 07/06/18 - SOCIAL HX Smoking History: non-smoker - FAMILY HX Family History: denies: none - VITAL SIGNS Vital Signs: Vital Signs Temp Pulse Resp BP Pulse Ox 97.8 F 74 18 206/77 94 07/06/18 13:30 07/06/18 16:00 07/06/18 13:30 07/06/18 13:30 07/06/18 16:00 - REVIEWED ASSESSMENTS Nursing Assessment Reviewed: Yes Vitals Reviewed: Yes Progress - Progress Progress: [address] Thomas including lab and BP. Patient has been running normotensive at [place]. Would like CT head. Hydralazine given for continued hypertension SBPs 200s 1550 BP 180/61 after 10mg hydralazine. ED Results Lab/Radiology - Lab Results Lab Results: Lab Results 07/06/18 07/06/18 07/06/18 13:43 13:43 13:43 WBC 6.70 K/ul K/ul (4.00-12.00) RBC 3.72 M/ul L M/ul (3.90-5.20) Hgb 9.8 g/dL L g/dL (12.0-16.0) Hct 30.9 % L % (34.5-46.5) MCV 83.0 fl fl (80.0-100.0) MCH 26.3 pg L pg (28.0-34.0) MCHC 31.7 g/dL g/dL (30.0-36.0) RDW 23.6 % H % (11.3-14.3) Plt Count 363 K/mm3 K/mm3 (130-400) Neut % (Auto) 71.1 % % (39.0-79.0) Lymph % (Auto) 19.7 % % (16.0-50.0) [place] % (Auto) 6.4 % % (0.0-11.0) Eos % (Auto) 2.3 % % (0.0-6.8) Baso % (Auto) 0.5 (0.0-1.5) Neut # (Auto) 4.8 # k/uL # k/uL (1.4-7.7) Lymph # (Auto) 1.3 # k/uL # k/uL (0.6-4.0) [place] # (Auto) 0.4 # k/uL # k/uL (0.0-0.9) Eos # (Auto) 0.2 # k/uL # k/uL (0.0-0.6) Baso # (Auto) 0.0 # k/uL # k/uL (0.0-0.5) Sodium 136 mmol/L mmol/L (136-145) Potassium 4.4 mmol/L mmol/L (3.5-5.1) Chloride 99 mmol/L mmol/L (98-107) Carbon Dioxide 29 mmol/L mmol/L (22-30) BUN 12 mg/dL mg/dL (7-17) Creatinine 0.55 mg/dL mg/dL (0.52-1.04) Estimated Creat Clear 73 Est GFR ( Amer) > 60 (60 - ) Est GFR (Non-Af Amer) > 60 (60 - ) Glucose 122 mg/dL H mg/dL (74-106) Calcium 9.0 mg/dL mg/dL (8.4-10.2) Total Bilirubin 0.4 mg/dL mg/dL (0.2-1.3) AST 50 U/L H U/L (15-46) ALT 26 U/L U/L (13-69) Alkaline Phosphatase 54 U/L U/L (38-126) Troponin I < 0.03 ng/mL L ng/mL (0.03-0.06) Total Protein 6.5 g/dL g/dL (6.3-8.2) Albumin 3.8 g/dL g/dL (3.5-5.0) - Radiology Radiology Impressions: Exam: CT brain without contrast. History: Syncopal episode. Axial images through the brain are submitted along with sagittal and coronal reformatted images. No previous studies are available for comparison. The brainstem and cerebellum are normal attenuation. Mild prominence to the surrounding cisterns in the posterior fossa are noted. In the supratentorial regions, no acute hemorrhage or mass effect is identified. Lateral ventricles and surrounding sulci are prominent. Fluid areas of diminished attenuation adjacent to the lateral ventricles are noted indicating small vessel disease. No extra axial fluid collections are identified. No bony abnormalities are identified. Impression: Atrophy. Small vessel disease. Electronically signed on Jul 06, 2018 4:00:48 PM WELL DRILLER by: Phoenix Whelan - Orders Orders: ED Orders Category Date Time Status Continuous EKG monitoring Q30M Care 07/06/18 13:43 Active Continuous Pulse Oximetry Q30M Care 07/06/18 13:43 Active CHEST 1VIEW [RAD] Stat Exams 07/06/18 13:[address] BRAIN W/O CONTRAST Stat Exams 07/06/18 Taken CBC/PLATELET/DIFF Stat Lab 07/06/18 13:43 Completed CMP Stat Lab 07/06/18 13:43 Completed INFLUENZA A&B Stat Lab 07/06/18 13:50 Ordered TROPONIN I (cTnI) Stat Lab 07/06/18 13:43 Completed UA W/MICRO IF INDICATED Stat Lab 07/06/18 13:43 Ordered hydrALAZINE HCL [Apresoline] Med 07/06/18 15:13 Discontinued 10 mg IVP NOW ONE EKG WITH COMPARISON Stat Ther 07/06/18 13:43 Ordered Syncope Physical Exam - Physical Exam General Appearance: no acute distress, alert EENT: nml eye inspection, PERRL Respiratory: no resp distress, chest non-tender, breath sounds normal CVS: reg rate & rhythm, heart sounds normal, equal pulses, no murmur, no gallop, PMI nml, no JVD, no friction rub, 24 Abdomen: non-tender, no organomegaly, nml bowel sounds, no distention Skin: normal color, warm/dry, NR, INT, PAL, DR Extremities: non-tender, normal range of motion, no evidence of injury, no edema, J, LEAF BLENDER - Neuro/Psych Higher Functions: alert, oriented x3, no evidence of acute CVA, mood/affect nml Cranial Nerves: nml as tested Cerebellar: nml as tested Sensorimotor: nml motor response, nml sensory response, nml reflexes, nml gait Discharge Clincal Impression: Hypertension Qualifiers: Hypertension type: essential hypertension Qualified Code(s): I10 - Essential (primary) hypertension Syncopal episodes Qualifiers: Syncope type: unspecified Qualified Code(s): R55 - Syncope and collapse Referrals: Jocelyne Thomas MD [Primary Care Provider] - 2 Days Additional Instructions: Continue all treatments and medications per Dr Thomas's orders. Condition: Stable Disposition: 01 HOME, SELF-CARE Decision to Admit: NO Decision Time: 16:06
[2018-07-06] MEDS ORDERED: hydrALAZINE HCL 20 MG/1 ML IVP ONE (15:13)
[2018-07-06 16:48] VITALS: BP 168/63
--- NOTE | 2018-07-07 02:06 | Diagnostic Imaging Report ---
ANTHONY MUÑIZ (DIRECTOR LOSS PREVENTION) - ER [facility] [address] [facility] [address] [place] [address]. [address] Report Submission Date: Jul 06, 2018 4:00:48 PM SURGICAL ELASTIC KNITTER Patient Study Name: RAMIREZ HINSON Date: Jul 06, 2018 3:25:34 PM SURGICAL ELASTIC KNITTER Modality Type: CT\SR Gender: F Description: CT BRAIN W/O CONTRAST : 28 Institution: [facility] Physician: ANTHONY MUÑIZ (DIRECTOR LOSS PREVENTION) - ER Exam: CT brain without contrast. History: Syncopal episode. Axial images through the brain are submitted along with sagittal and coronal reformatted images. No previous studies are available for comparison. The brainstem and cerebellum are normal attenuation. Mild prominence to the surrounding cisterns in the posterior fossa are noted. In the supratentorial regions, no acute hemorrhage or mass effect is identified. Lateral ventricles and surrounding sulci are prominent. Fluid areas of diminished attenuation adjacent to the lateral ventricles are noted indicating small vessel disease. No extra axial fluid collections are identified. No bony abnormalities are identified. Impression: Atrophy. Small vessel disease. Electronically signed on Jul 06, 2018 4:00:48 PM SURGICAL ELASTIC KNITTER by: Phoenix NEWTON
--- NOTE | 2018-07-07 02:09 | Diagnostic Imaging Report ---
ANTHONY MUÑIZ (EARTH MOVING MACHINE OPERATOR) - ER [facility] [address] [facility].[address] [address] Report Submission Date: Jul 06, 2018 2:19:55 PM HAIR BLENDER Patient Study Name: RAMIREZ HINSON Date: Jul 06, 2018 1:51:43 PM HAIR BLENDER Modality Type: DX Gender: F Description: CHEST 1VIEW : 28 Institution: [facility] Physician: ANTHONY MUÑIZ (EARTH MOVING MACHINE OPERATOR) - ER Examination: Portable chest History: Evaluate lungs COUGH, HYPOXIA Comparison exam: 20 June 2018 Findings: Single view of the chest demonstrates a prominent cardiac and mediastinal silhouette. Tortuous aorta with vascular calcifications. Lung montano without focal infiltrate. No blunting of the costophrenic margins. Articular degenerative changes. Impression: No acute appearing pulmonary process. Electronically signed on Jul 06, 2018 2:19:55 PM HAIR BLENDER by: Kerwin NEWTON
[2018-07-07 08:24] LABS: APPEARANCE,URINE CLOUDY (CLEAR); COLOR,URINE YELLOW (YELLOW); OCCULT BLOOD,URINE NEGATIVE (NEGATIVE); UROBILINOGEN URINE 0.2 Eu (0.2-1.0)
== END 2018-07-06 16:41 | disposition home or self-care (01) ==
LOC: ED 13:26
DX: I10 Essential (primary) hypertension (principal); R55 Syncope and collapse
CPT/HCPCS: 36415; 51701; 70450; 71045; 80053; 81002; 84484; 85025; 87400; 93005; 96374; 99284; 99285; J0360

== ENCOUNTER 2018-12-23 11:40 | Emergency (ER) | payer MEDICARE, OTHER ==
--- NOTE | 2018-12-23 11:59 | ED Physician Documentation ---
Fall - HISTORIAN Historian: patient - HPI Stated Complaint: fall to sitting position and then back and hit her head Chief Complaint: Fall Onset: just prior to arrival Where: other (shopping) Context: lost balance r: mild Associated Symptoms:: no loss of consciousness Location of Pain/Injury: head Injury to Right Extremity: none Injury to Left Extremity: hip Further Comments: yes (per family she was getting out of the car and she stumbbled and she feel on her buttocks then back and hit her head. no LOC. She is complaining of a headache and left hip pain. She takes "pain pills" and she did take one before her trip.) - ROS CONST: no problems NEURO: denies: dizziness MS/SKIN/LYMPH: denies: weakness, numbness, neck pain, back pain, leg swelling EYES/ENT: none CVS/RESP: none - PAST HX Past History: other (hypertension ) Allergies/Adverse Reactions: Allergies Allergy/AdvReac Type Severity Reaction Status Date / Time cephalexin monohydrate Allergy Intermediate Nausea/Vomi Verified 12/23/18 12:07 ting sulfamethoxazole Allergy Intermediate Nausea/Vomi Verified 12/23/18 12:07 ting trimethoprim Allergy Intermediate Nausea/Vomi Verified 12/23/18 12:07 ting Home Medications: Ambulatory Orders Medication Instructions Recorded Ipratropium/Albuterol Sulfate 3 ml NEB Q6 PRN #0 ampul.neb 07/12/16 [Duoneb] Albuterol Sulfate [Proair Hfa] 90 mcg PO Q4H PRN 07/06/18 Mag Hydrox/Aluminum Hyd/Simeth 30 ml PO DAILY PRN 07/06/18 [Mylanta] Magnesium Hydroxide [Milk of 30 ml PO DAILY PRN 07/06/18 Magnesia] Polyethylene Glycol 3350 [Miralax] 17 gm PO DAILY PRN 07/06/18 - SOCIAL HX Smoking History: non-smoker Alcohol Use: none Drug Use: none - FAMILY HX Family History: none - VITAL SIGNS Vital Signs: Vital Signs Temp Pulse Resp BP Pulse Ox 168/63 07/06/18 16:46 - REVIEWED ASSESSMENTS Nursing Assessment Reviewed: Yes Vitals Reviewed: Yes Progress - Progress Progress: 1312: up to bedside commode tolerated transfer well. DG 1333: Discussed current findings with pt and family awaiting elbow xray DG ED Results Lab/Radiology - Radiology Radiology Impressions: Two views of the left hip Clinical history: Fall today. Pain. Findings: Examination left hip in AP and frog-leg lateral views demonstrates short intramedullary rory in the femur with an interlocking compression screw overlying the femoral neck and head. There is no evidence of acute fracture or dislocation. Impression: 1. Postoperative changes. 2. No acute fracture. Electronically signed on Dec 23, 2018 12:48:21 PM CDT by: Max Estrada Head CT without contrast Clinical history: Fall with injury to the back of the head. Technique: CT examination of the brain is performed in contiguous axial slices with sagittal and coronal reconstructions. Findings: The 4th ventricle lies in a normal midline position. The ventricles and sulci are prominent secondary to atrophy. Chronic small vessel ischemic changes are present in the periventricular regions. There is no hypodense or hyperdense mass or intracranial hemorrhage. Intracranial atherosclerosis is evident. Visualized paranasal sinuses and mastoid air cells are clear. There is a right parietal scalp hematoma. The underlying bony structures are intact. Impression: 1. Atrophy and chronic small vessel ischemic changes. 2. Intracranial atherosclerosis. 3. Right parietal scalp injury. 4. No acute intracranial changes. Electronically signed on Dec 23, 2018 12:49:48 PM CDT by: Max Delgado Physical Exam - Physical Exam General Appearance: no acute distress, alert Head: non-tender, trauma (3 cm raised area on posterior scalp right posterior ) Neck: non-tender, painless ROM Eye: CARLENE ENT: nml external inspection Resp/CVS: chest non-tender, breath sounds nml, no resp. distress, heart sounds nml Abdomen: soft, normal bowel sounds Neuro: oriented x3 Skin: color nml, no rash Back: normal inspection Extremities: other (pain with palpation of left hip ) Joint: joints nml, nml ROM, Nml gait/weight bearing - Glenvil Coma Score Eyes Open: Spontaneous Speech: Oriented Motor: Obeys Commands Discharge Clincal Impression: Fall Qualifiers: Encounter type: initial encounter Qualified Code(s): W19.XXXA - Unspecified fall, initial encounter Hematoma of scalp Qualifiers: Encounter type: initial encounter Qualified Code(s): S00.03XA - Contusion of scalp, initial encounter Referrals: Jocelyne Thomas MD [Primary Care Provider] - 2 Days Comments: 1. Continue home meds 2. Follow up with Dr Thomas early in week 3. Return to ER for any increasing concerns 4. Keep pressure dressing on scalp for 24 hours Condition: Stable Disposition: 01 HOME, SELF-CARE Decision to Admit: NO Date of Decison to Admit: 12/23/18 Decision Time: 13:54
[2018-12-23 12:14] LABS: BASOPHILS % 0.4 % (0.0-1.5); NEUTROPHILS # 5.6 # k/uL (1.4-7.7)
[2018-12-23 12:27] LABS: eGFR (Non-African) > 60
--- NOTE | 2018-12-23 13:11 | Diagnostic Imaging Report ---
LIDA FERNÁNDEZ [facility] [address] [facility] [address] [place], [place]. [address] Report Submission Date: Dec 23, 2018 12:48:21 PM CDT Patient Study Name: RAMIREZ HINSON Date: Dec 23, 2018 12:23:46 PM CDT Modality Type: DX Gender: F Description: LT HIP 2VIEW COMPLETE : 28 Institution: [facility] Physician: LIDA FERNÁNDEZ Two views of the left hip Clinical history: Fall today. Pain. Findings: Examination left hip in AP and frog-leg lateral views demonstrates short intramedullary rory in the femur with an interlocking compression screw overlying the femoral neck and head. There is no evidence of acute fracture or dislocation. Impression: 1. Postoperative changes. 2. No acute fracture. Electronically signed on Dec 23, 2018 12:48:21 PM CDT by: Max NEWTON
--- NOTE | 2018-12-23 13:12 | Diagnostic Imaging Report ---
LIDA FERNÁNDEZ [facility] [address] [facility] [address] [place], [place]. [address] Report Submission Date: Dec 23, 2018 12:49:48 PM CDT Patient Study Name: RAMIREZ HINSON Date: Dec 23, 2018 12:17:21 PM CDT Modality Type: CT\SR Gender: F Description: CT BRAIN W/O CONTRAST : 28 Institution: [facility] Physician: LIDA FERNÁNDEZ Head CT without contrast Clinical history: Fall with injury to the back of the head. Technique: CT examination of the brain is performed in contiguous axial slices with sagittal and coronal reconstructions. Findings: The 4th ventricle lies in a normal midline position. The ventricles and sulci are prominent secondary to atrophy. Chronic small vessel ischemic changes are present in the periventricular regions. There is no hypodense or hyperdense mass or intracranial hemorrhage. Intracranial atherosclerosis is evident. Visualized paranasal sinuses and mastoid air cells are clear. There is a right parietal scalp hematoma. The underlying bony structures are intact. Impression: 1. Atrophy and chronic small vessel ischemic changes. 2. Intracranial atherosclerosis. 3. Right parietal scalp injury. 4. No acute intracranial changes. Electronically signed on Dec 23, 2018 12:49:48 PM CDT by: Max NEWTON
[2018-12-23 14:21] VITALS: BP 236/91
[2018-12-23 14:46] LABS: APPEARANCE,URINE CLEAR (CLEAR); COLOR,URINE YELLOW (YELLOW); OCCULT BLOOD,URINE 1+ (NEGATIVE); PH URINE 7.5 (5.0 - 8.0); UROBILINOGEN URINE 0.2 Eu (0.2-1.0)
--- NOTE | 2018-12-23 15:19 | Diagnostic Imaging Report ---
LIDA FERNÁNDEZ [facility] [address] [facility] [address] [address] Report Submission Date: Dec 23, 2018 1:51:32 PM CDT Patient Study Name: RAMIREZ HINSON Date: Dec 23, 2018 12:39:18 PM CDT Modality Type: DX Gender: F Description: ELBOW 3 VIEWS : 28 Institution: [facility] Physician: LIDA FERNÁNDEZ ELBOW 3 VIEWS History: LEFT POSTERIOR ELBOW PAIN AFTER FALL TODAY Findings: The osseous structures are intact without acute fracture. The joint space and alignment are normal. There is no soft tissue swelling. No joint effusion Impression: 1. No acute osseous abnormality. Electronically signed on Dec 23, 2018 1:51:32 PM CDT by: Fer NEWTON
== END 2018-12-23 14:21 | disposition home or self-care (01) ==
LOC: ED 11:40
DX: S00.03XA Contusion of scalp, initial encounter (principal); W19.XXXA Unspecified fall, initial encounter
CPT/HCPCS: 70450; 73080; 80053; 81002; 85025; 93005; 99283; S1016

== ENCOUNTER 2019-01-15 10:59 | Outpatient (CLI) | payer MEDICARE, OTHER ==
[2019-01-15] MEDS ORDERED: IRON SUCROSE COMPLEX 200 MG in 0.9 % SODIUM CHLORIDE 100 ML IV ONE (12:00)
== END 2019-01-15 12:30 | disposition home or self-care (01) ==
LOC: INF 10:59
PROVIDERS: ATTEND Family Medicine
DX: D50.9 Iron deficiency anemia, unspecified (principal)
CPT/HCPCS: J1756 ×2; S1016

== ENCOUNTER 2019-01-18 07:02 | Outpatient (CLI) | payer MEDICARE, OTHER ==
[2019-01-18] MEDS ORDERED: ACETAMINOPHEN 325 MG TABLET ONE (08:24)
[2019-01-18] MEDS ORDERED: diphenhydrAMINE HCL 25 MG TABLET PO ONE (08:24)
[2019-01-18] MEDS ORDERED: 0.9 % SODIUM CHLORIDE 100 ML IV ONE ×2 (08:24→12:53)
[2019-01-18] MEDS ORDERED: hydrALAZINE HCL 25 MG TABLET PO ONE ×2 (08:50→17:04)
[2019-01-18] MEDS ORDERED: FUROSEMIDE 20 MG/2 ML VIAL ONE (12:42)
[2019-01-18] MEDS ORDERED: IPRATROPIUM/ALBUTEROL SULFATE 3 ML AMPUL.NEB NEB ONE (13:19)
== END 2019-01-18 17:30 | disposition home or self-care (01) ==
LOC: INF 07:02 → OUT 07:02
PROVIDERS: ATTEND Family Medicine
DX: D64.9 Anemia, unspecified (principal)
CPT/HCPCS: 86885; 86900; 86901; 86920; J1940; Q0163; P9040; S1016

== ENCOUNTER 2019-03-28 07:30 | Emergency (ER) | payer MEDICARE, OTHER ==
[2019-03-28 07:57] LABS: BASOPHILS % 0.4 % (0.0-1.5); NEUTROPHILS # 4.5 # k/uL (1.4-7.7)
[2019-03-28 08:20] LABS: eGFR (Non-African) > 60
--- NOTE | 2019-03-28 08:23 | ED Physician Documentation ---
General Adult - HISTORIAN Historian: patient - HPI Stated Complaint: Syncope Chief Complaint: General Adult Additional Information: Patient presents to ED via EMS from [place] after passing out at the breakfast table this morning. Patient has had similar episodes in the past with complete work up which was negative. Patient does not remember anything about the episode and asks why she is at the hospital. Her only complaint this morning is hurting all over (this is chronic) and being cold. She denies shortness of breath, chest pain or light headedness. EMS reports HR 55 upon arrival. Onset: minutes (20) Timing: gone now - ROS CONST: denies: fever EYES/ENT: denies: problems with vision CVS/RESP: denies: chest pain, shortness of breath, cough GI/: denies: abdominal pain, vomiting, nausea MS/SKIN/LYMPH: denies: leg swelling NEURO/PSYCH: fainting. denies: headache - PAST HX Past History: COPD, hypertension, other Other History: none Surgeries/Procedures: none Allergies/Adverse Reactions: Allergies Allergy/AdvReac Type Severity Reaction Status Date / Time cephalexin monohydrate Allergy Intermediate Nausea/Vomi Verified 03/28/19 07:48 ting sulfamethoxazole Allergy Intermediate Nausea/Vomi Verified 03/28/19 07:48 ting trimethoprim Allergy Intermediate Nausea/Vomi Verified 03/28/19 07:48 ting Home Medications: Ambulatory Orders Medication Instructions Recorded Albuterol Sulfate [Proair Hfa] 90 mcg PO Q4H PRN 07/06/18 Mag Hydrox/Aluminum Hyd/Simeth 30 ml PO DAILY PRN 07/06/18 [Mylanta] Magnesium Hydroxide [Milk of 30 ml PO DAILY PRN 07/06/18 Magnesia] Polyethylene Glycol 3350 [Miralax] 17 gm PO DAILY PRN 07/06/18 Albuterol Sulfate [Ventolin HFN] 1 vial INH Q4 PRN 03/28/19 - SOCIAL HX Smoking History: non-smoker Alcohol Use: none Drug Use: none - FAMILY HX Family History: No - VITAL SIGNS Vital Signs: Vital Signs Temp Pulse Resp BP Pulse Ox 59 L 22 199/66 93 03/28/19 08:06 03/28/19 07:30 03/28/19 07:30 03/28/19 07:30 - REVIEWED ASSESSMENTS Nursing Assessment Reviewed: Yes Vitals Reviewed: Yes Progress - Progress Progress: [address] Thomas, wants to stop Metoprolol and start Lisnipril 10mg daily. Fax daily blood pressure readings to her office in 1 week. 09 Further discussion with Daughter, who had concerns with discharge. Transfer to [facility] was offered, however, daughter wanted patient to be admitted to the Cardiology service. I told her it was unlikely patient would be admitted to cardiology but hospitalist would be consulting cardiology more than likely. Daughter states she will call Dr. Zabala's office and get an appointment. - EKG/XRAY/CT Comments: NSR [address] elevation ED Results Lab/Radiology - Lab Results Lab Results: Lab Results 03/28/19 03/28/19 07:42 07:42 WBC 6.80 K/ul K/ul (4.00-12.00) RBC 3.67 M/ul L M/ul (3.90-5.20) Hgb 10.9 g/dL L g/dL (11.5-16.0) Hct 33.4 % L % (34.5-46.5) MCV 91.0 fl fl (80.0-100.0) MCH 29.6 pg pg (28.0-34.0) MCHC 32.5 g/dL g/dL (30.0-36.0) RDW 17.5 % H % (11.3-14.3) Plt Count 286 K/mm3 K/mm3 (130-400) Neut % (Auto) 65.6 % % (39.0-79.0) Lymph % (Auto) 22.2 % % (16.0-50.0) [place] % (Auto) 9.4 % % (0.0-11.0) Eos % (Auto) 2.4 % % (0.0-6.8) Baso % (Auto) 0.4 % % (0.0-1.5) Neut # (Auto) 4.5 # k/uL # k/uL (1.4-7.7) Lymph # (Auto) 1.5 # k/uL # k/uL (0.6-4.0) [place] # (Auto) 0.6 # k/uL # k/uL (0.0-0.9) Eos # (Auto) 0.2 # k/uL # k/uL (0.0-0.6) Baso # (Auto) 0.0 # k/uL # k/uL (0.0-0.5) Sodium 135 mmol/L L mmol/L (137-145) Potassium 4.1 mmol/L mmol/L (3.5-5.1) Chloride 96 mmol/L L mmol/L (98-107) Carbon Dioxide 31 mmol/L H mmol/L (22-30) Anion Gap 12.1 BUN 12 mg/dL mg/dL (7-17) Creatinine 0.38 mg/dL L mg/dL (0.52-1.04) Estimated Creat Clear 122 Est GFR ( Amer) > 60 (60 - ) Est GFR (Non-Af Amer) > 60 (60 - ) Glucose 114 mg/dL H mg/dL (74-106) Calcium 9.6 mg/dL mg/dL (8.4-10.2) Total Bilirubin 0.6 mg/dL mg/dL (0.2-1.3) AST 47 U/L H U/L (15-46) ALT 12 U/L U/L (0-35) Alkaline Phosphatase 83 U/L U/L (38-126) Total Protein 7.4 g/dL g/dL (6.3-8.2) Albumin 4.1 g/dL g/dL (3.5-5.0) - Orders Orders: ED Orders Category Date Time Status Continuous EKG monitoring Q30M Care 03/28/19 07:36 Active CHEST 2VIEW [RAD] Stat Exams 03/28/19 Ordered CBC/PLATELET/DIFF Routine Lab 03/28/19 07:42 Completed CMP Routine Lab 03/28/19 07:42 Completed NT BNP Stat Lab 03/28/19 07:42 Completed TROPONIN I Stat Lab 03/28/19 07:42 Completed UA W/MICRO IF INDICATED Routine Lab 03/28/19 07:37 Ordered EKG WITH COMPARISON Stat Ther 03/28/19 Ordered General Adult Physical Exam - PHYSICAL EXAM GENERAL APPEARANCE: no distress EENT: CARLENE NECK: supple RESPIRATORY: no resp distress, breath sounds normal CVS: heart sounds normal, irregularly irregular rhy ABDOMEN: soft, normal bowel sounds BACK: no CVA tenderness SKIN: warm/dry EXTREMITIES: non-tender, no evidence of injury, no edema NEURO: oriented X3, mood/affect nml Discharge Clincal Impression: Symptomatic bradycardia Syncope Qualifiers: Syncope type: unspecified Qualified Code(s): R55 - Syncope and collapse Referrals: Jocelyne Thomas MD [Primary Care Provider] - 2 Days Additional Instructions: 1. Stop Metoprolol. 2. Start Lisinopril 10mg by mouth daily. Begin on 03/29/19 3. Daily blood pressure log. Fax readings to Dr. Thomas's office in 1 week 4. Follow up with Dr. Thomas within 10 days 5. Return to ER for new or worsening symptoms Condition: Stable Disposition: 01 HOME, SELF-CARE Decision to Admit: NO Date of Decison to Admit: 03/28/19 Decision Time: 09:52
--- NOTE | 2019-03-28 08:57 | Diagnostic Imaging Report ---
PATIENT MR#: [id number] PATIENT PATIENT NAME: RAMIREZ HINSON DATE OF : 1930 REFERRING PHYSICIAN: Hayde Lewis EXAM DATE: 03/28/2019 ACCESSION NUMBER: [id number] EXAM DESCRIPTION: CHEST 2VIEW CHEST 2 VIEWS CLINICAL INDICATION: CXR, SYNCOPE, PT UNABLE TO PROVIDE FURTHER HX (Hx) / Note time : 03/28/2019 8:42:05 AM User : Nathalie Grissom CXR, SYNCOPE, PT UNABLE TO PROVIDE FURTHER HX (DICOM Hx) (DICOM Hx) FINDINGS: Two views of the chest were obtained. The exam is compared to July 06, 2018. The lungs are well expanded. There is blunting of the left costophrenic angle suggesting small pleura l effusion or partial reactive change. This is similar to prior. There is a linear band of linear atelectasis or fi brotic change in the right apex similar to prior. The heart size is stable. IMPRESSION: blunted left costophrenic angle Right upper lobe atelectasis or fibrotic change Read by: Dr. aDniel Chavez Transcribed by: Transcribed Date: Electronically signed by: Dr. Daniel Chavez Date signed: 03/28/2019 8:56:52 AM
[2019-03-28] MEDS ORDERED: LISINOPRIL 5 MG TABLET PO ONE (09:11)
[2019-03-28 10:24] VITALS: BP 219/73
== END 2019-03-28 10:15 | disposition home or self-care (01) ==
LOC: ED 07:30
DX: R55 Syncope and collapse (principal)
CPT/HCPCS: 71046; 80053; 83880; 84484; 85025; 93005; 99282; 99283